=== PATIENT | female | born 1950 | race Caucasian/White ===

== ENCOUNTER 2021-07-31 13:44 | Outpatient (REF) | payer MEDICARE, OTHER, SELFPAY ==
--- NOTE | ~2021-07-31 | MM_ITS ---
EXAMINATION: BONE DENSITOMETRY CLINICAL INDICATION: Screening for osteoporosis. COMPARISON: Baseline BD dated 07/22/2017. TECHNIQUE: Using a Mattersight DXA System (software version: 13.1) manufactured by [employer], dual-energy x-ray absorptiometry was performed of the lumbar spine and left hip. The images are of good technical quality. Summary results are attached. FINDINGS: AP SPINE L1-L4: There is mild lumbar curvature and degenerative changes which may cause overestimation of the lumbar bone mineral density. Current: BMD 1.322 g/cm2, Z-score 2.1, T-score 1.2, normal, 16.3% increase from baseline (<5% change is not significant). Baseline: BMD 1.137 g/cm2. LEFT FEMUR, NECK: Current: BMD 0.821 g/cm2, Z-score -0.4, T-score -1.6, osteopenia. Baseline: BMD 0.747 g/cm2. LEFT FEMUR, TOTAL: Current: BMD 0.891 g/cm2, Z-score 0.0, T-score -0.9, normal, 1.3% increase from baseline (<5% change is not significant). Baseline: BMD 0.880 g/cm2. IDENTIFIED RISK FACTORS: Height loss, family history (parental hip fracture), thiazide, menopause. HISTORY OF FRACTURE: Foot. MEDICATIONS: Calcium supplements or multivitamin, vitamin D. MM/XR DEXA axial skeleton IMPRESSION: 1. DIAGNOSIS: Osteopenia based on the lowest T-score value of -1.6 in the femoral neck applying World Health Organization criteria. 2. 10-YEAR FRACTURE RISK PREDICTION, FRAX: Major osteoporotic fracture (clinical spine, forearm, hip or shoulder) 15.6%. Hip fracture 2.7%. 3. Treatment Recommendations: NOF guidelines recommend consideration for treatment in postmenopausal women and men age 50 and older presenting with the following: -A hip or vertebral (clinical or morphometric) fracture. -T-score less than or equal to -2.5 at the femoral neck or spine after appropriate evaluation to exclude secondary causes. -Low bone mass at the hip or spine and a 10-year fracture probability by FRAX of greater than or equal to 3% for hip fracture or greater than or equal to 20% for major osteoporotic fracture based on the [place] adapted WHO algorithm. 4. Other Recommendations: All treatment decisions require clinical judgment and consideration of individual patient factors, including patient preferences, comorbidities, previous drug use, risk factors not captured in the FRAX model (e.g. frailty, falls, vitamin D deficiency, increased bone turnover, interval significant decline in bone density) and possible under or overestimation of fracture risk by FRAX. Additional medical evaluation for secondary cause of low bone mineral density may be appropriate. FUTURE SCAN RECOMMENDATION: People with diagnosed cases of osteoporosis or at high risk for fracture should have regular bone mineral density tests. For patients eligible for Medicare, routine testing is allowed once every 2 years. The testing frequency can be increased to one year for patients who have rapidly progressing disease, those who are receiving or discontinuing medical therapy to restore bone mass, or have additional risk factors.
== END 2021-07-31 13:45 | disposition home or self-care (01) ==
LOC: HO.MAMMO 13:44
PROVIDERS: PCP Nurse Practitioner Adult Health; Visit Provider Nurse Practitioner Adult Health
DX: Z13.820 Encounter for screening for osteoporosis (principal); M85.80 Other specified disorders of bone density and structure, unspecified site; Z78.0 Asymptomatic menopausal state; Z87.81 Personal history of (healed) traumatic fracture; Z79.899 Other long term (current) drug therapy
CPT/HCPCS: 77080

== ENCOUNTER 2021-08-09 08:16 | Outpatient (REF) | payer MEDICARE, OTHER, SELFPAY ==
--- NOTE | ~2021-08-09 | MM_ITS ---
EXAMINATION: MM SCREENING DIGITAL BREAST TOMOSYNTHESIS, BILATERAL CLINICAL INFORMATION: Screening. Asymptomatic. The lifetime risk of breast cancer based on the Tyrer-Cuzick Model is 4.8%. COMPARISON: Mammography: August 03, 2020 and studies dating back to September 20, 2016 TECHNIQUE: Digital breast tomosynthesis is performed in both the craniocaudal and mediolateral oblique views along with computer-aided detection (CAD). Synthesized 2D images are generated from the tomosynthesis. FINDINGS: The breasts are almost entirely fatty (ACR BI-RADS breast composition Category a). There are no significant masses, abnormal calcifications, or other abnormalities. Cardiac recorder seen about the left chest wall. MM/MM tomosynthesis screening BI IMPRESSION: There are no significant changes from prior study. ASSESSMENT: BI-RADS 1: Negative RECOMMENDATION: Routine annual mammography screening. This patient's information was entered into a reminder system with a target due date for their next mammogram.
== END 2021-08-09 08:17 | disposition home or self-care (01) ==
LOC: HO.MAMMO 08:16
PROVIDERS: PCP Nurse Practitioner Adult Health; Visit Provider Family Medicine
DX: Z12.31 Encounter for screening mammogram for malignant neoplasm of breast (principal)
CPT/HCPCS: 77063; 77067

== ENCOUNTER 2022-08-15 08:03 | Outpatient (REF) | payer MEDICARE, OTHER, SELFPAY ==
--- NOTE | ~2022-08-15 | MM_ITS ---
EXAMINATION: MM SCREENING DIGITAL BREAST TOMOSYNTHESIS, BILATERAL CLINICAL INFORMATION: Screening. Asymptomatic. The lifetime risk of breast cancer based on the Tyrer-Cuzick Model is 4%. COMPARISON: Mammography: 08/09/2021, 08/03/2020, 07/31/2019 TECHNIQUE: Digital breast tomosynthesis is performed in both the craniocaudal and mediolateral oblique views along with computer-aided detection (CAD). Synthesized 2D images are generated from the tomosynthesis. FINDINGS: The breasts are almost entirely fatty (ACR BI-RADS breast composition Category a). Background stromal markings are normal. No developing density, mass, or architectural abnormality. No abnormal calcifications. Cardiac loop recorder again seen overlying posterior upper inner left breast. The axilla are unremarkable. The skin contours are smooth. No significant changes MM/MM tomosynthesis screening BI IMPRESSION: No mammographic evidence of malignancy. ASSESSMENT: BI-RADS 1: Negative RECOMMENDATION: Routine annual mammography screening. This patient's information was entered into a reminder system with a target due date for their next mammogram.
== END 2022-08-15 08:04 | disposition home or self-care (01) ==
LOC: HO.MAMMO 08:03
PROVIDERS: PCP Nurse Practitioner Adult Health; Visit Provider Nurse Practitioner Adult Health
DX: Z12.31 Encounter for screening mammogram for malignant neoplasm of breast (principal)
CPT/HCPCS: 77063; 77067

== ENCOUNTER 2023-08-21 07:55 | Outpatient (REF) | payer MEDICARE, OTHER, SELFPAY ==
--- NOTE | ~2023-08-21 | MM_ITS ---
EXAMINATION: MM SCREENING DIGITAL BREAST TOMOSYNTHESIS, BILATERAL CLINICAL INFORMATION: Screening. Asymptomatic. COMPARISON: Mammography: This study is compared with prior exams dating back to 2019. TECHNIQUE: Digital breast tomosynthesis is performed in both the craniocaudal and mediolateral oblique views along with computer-aided detection (CAD). Synthesized 2D images are generated from the tomosynthesis. FINDINGS: There are scattered areas of fibroglandular density (ACR BI-RADS breast composition Category b). There are no significant masses, abnormal calcifications, or other abnormalities. There is a cardiac loop recorder the medial aspect of the left breast. MM/MM tomosynthesis screening BI IMPRESSION: No mammographic evidence of malignancy. ASSESSMENT: BI-RADS BI-RADS 1 - Negative RECOMMENDATION: Routine annual mammography screening. 1 year F/U This examination should not preclude the clinical evaluation of a suspicious palpable abnormality. This patient's information was entered into a reminder system with a target due date for their next mammogram.
== END 2023-08-21 07:56 | disposition home or self-care (01) ==
LOC: HO.MAMMO 07:55
PROVIDERS: Visit Provider Nurse Practitioner Adult Health
DX: Z12.31 Encounter for screening mammogram for malignant neoplasm of breast (principal)
CPT/HCPCS: 77063; 77067

== ENCOUNTER → 2023-08-21 08:15 | Outpatient (BNV) | payer MEDICARE, OTHER, SELFPAY | PROVIDERS: Visit Provider Radiology Diagnostic Radiology | DX: Z12.31 Encounter for screening mammogram for malignant neoplasm of breast (principal) | CPT/HCPCS: 77063; 77067 ==

== ENCOUNTER 2024-08-26 07:58 | Outpatient (REF) | payer MEDICARE, OTHER, SELFPAY ==
--- NOTE | ~2024-08-26 | MM_ITS ---
EXAMINATION: MM SCREENING DIGITAL BREAST TOMOSYNTHESIS, BILATERAL CLINICAL INFORMATION: Screening. Asymptomatic. COMPARISON: Mammography: Comparison is made with available priors TECHNIQUE: Digital breast mammography with tomosynthesis is performed in both the craniocaudal and mediolateral oblique views along with computer-aided detection (CAD). FINDINGS: There are scattered areas of fibroglandular density (ACR BI-RADS breast composition Category b). Cardiac loop recorder overlies and obscures the superior medial left breast posterior depth. There are no significant masses, abnormal calcifications, or other abnormalities. MM/MM tomosynthesis screening BI IMPRESSION: No mammographic evidence of malignancy. ASSESSMENT: BI-RADS BI-RADS 2 - Benign Findings RECOMMENDATION: Routine annual mammography screening. 1 year F/U This examination should not preclude the clinical evaluation of a suspicious palpable abnormality. This patient's information was entered into a reminder system with a target due date for their next mammogram. Electronically signed by: Sweta Hernandez DO 09/07/2024 12:14 PM EDT
== END 2024-08-26 07:59 | disposition home or self-care (01) ==
LOC: HO.MAMMO 07:58
PROVIDERS: PCP Nurse Practitioner Adult Health; Visit Provider Nurse Practitioner Adult Health
DX: Z12.31 Encounter for screening mammogram for malignant neoplasm of breast (principal)
CPT/HCPCS: 77063; 77067

== ENCOUNTER → 2024-08-26 08:15 | Outpatient (BNV) | payer MEDICARE, OTHER, SELFPAY | PROVIDERS: PCP Nurse Practitioner Adult Health; Visit Provider Internal Medicine | DX: Z12.31 Encounter for screening mammogram for malignant neoplasm of breast (principal) | CPT/HCPCS: 77063; 77067 ==

== ENCOUNTER 2024-09-02 08:10 | Outpatient (REF) | payer MEDICARE, OTHER, SELFPAY ==
--- NOTE | ~2024-09-02 | MM_ITS ---
EXAMINATION: BONE DENSITOMETRY CLINICAL INDICATION: Osteopenia. COMPARISON: Previous BD dated 07/31/2021 and baseline BD dated 07/22/2017. TECHNIQUE: Using a [employer]raSensors DXA System (software version: 13.1) manufactured by [employer], dual-energy x-ray absorptiometry was performed of the lumbar spine and left hip. The images are of good technical quality. Summary results are attached. FINDINGS: AP SPINE L1-L4: Current: BMD 1.258 g/cm2, Z-score 1.7, T-score 0.7, normal, 4.8% decrease from previous, 10.6% increase from baseline (<5% change is not significant). Prior: BMD 1.322 g/cm2. Baseline: BMD 1.137 g/cm2. LEFT FEMUR, NECK: Current: BMD 0.782 g/cm2, Z-score -0.5, T-score -1.8, osteopenia. Prior: BMD 0.821 g/cm2. Baseline: BMD 0.747 g/cm2. LEFT FEMUR, TOTAL: Current: BMD 0.903 g/cm2, Z-score 0.3, T-score -0.8, normal, 1.3% increase from previous, 2.6% increase from baseline (<5% change is not significant). Prior: BMD 0.891 g/cm2. Baseline: BMD 0.880 g/cm2. IDENTIFIED RISK FACTORS: Height loss. Parental hip fracture. Thiazide. Menopause. HISTORY OF FRACTURE: None listed. MEDICATIONS: Calcium supplement and/or multivitamin. Vitamin D. MM/XR DEXA axial skeleton IMPRESSION: 1. DIAGNOSIS: Osteopenia based on the lowest T-score value of -1.8 in the femoral neck applying World Health Organization criteria. 2. 10-YEAR FRACTURE RISK PREDICTION, FRAX: Major osteoporotic fracture (clinical spine, forearm, hip or shoulder) 18.5%. Hip fracture 7.0%. 3. Treatment Recommendations: NOF guidelines recommend consideration for treatment in postmenopausal women and men age 50 and older presenting with the following: -A hip or vertebral (clinical or morphometric) fracture. -T-score less than or equal to -2.5 at the femoral neck or spine after appropriate evaluation to exclude secondary causes. -Low bone mass at the hip or spine and a 10-year fracture probability by FRAX of greater than or equal to 3% for hip fracture or greater than or equal to 20% for major osteoporotic fracture based on the [place] adapted WHO algorithm. 4. Other Recommendations: All treatment decisions require clinical judgment and consideration of individual patient factors, including patient preferences, comorbidities, previous drug use, risk factors not captured in the FRAX model (e.g. frailty, falls, vitamin D deficiency, increased bone turnover, interval significant decline in bone density) and possible under or overestimation of fracture risk by FRAX. Additional medical evaluation for secondary cause of low bone mineral density may be appropriate. FUTURE SCAN RECOMMENDATION: People with diagnosed cases of osteoporosis or at high risk for fracture should have regular bone mineral density tests. For patients eligible for Medicare, routine testing is allowed once every 2 years. The testing frequency can be increased to one year for patients who have rapidly progressing disease, those who are receiving or discontinuing medical therapy to restore bone mass, or have additional risk factors. Electronically signed by: Mike Mehta MD 09/02/2024 02:10 PM EDT
== END 2024-09-02 08:11 | disposition home or self-care (01) ==
LOC: HO.MAMMO 08:10
PROVIDERS: PCP Nurse Practitioner Adult Health; Visit Provider Nurse Practitioner Adult Health
DX: Z13.820 Encounter for screening for osteoporosis (principal); M85.852 Other specified disorders of bone density and structure, left thigh
CPT/HCPCS: 77080

== ENCOUNTER 2025-09-01 09:07 | Outpatient (REF) | payer MEDICARE, OTHER, SELFPAY ==
--- OUTSIDE RECORDS SUMMARY | 2025-09-01 10:16 | XMS_ITS | Encounter Summary ---
Author Organization [facility] Address [address] [facility] [address] [place] [address] Phone Care Team Providers Care Bargain Table Clerk Name Role Phone Selam Knowles CNP Primary Care Provider Jamaal Lamb MD Unavailable Dom Marroquin MD Unavailable Shannon Andrade FIRST ASSIST Unavailable [phone] Breezy Trinh MD Unavailable Khai Hall MD Unavailable Yisel Talbot MD Unavailable [phone] Suraj Solis OT Unavailable Breezy Smith MD Unavailable [phone] Jeanne Beltrán Unavailable Leonard Dumont MD Unavailable Sai Hollins MD Unavailable [phone] Selam Knowles MOTORBIKE COURIER Unavailable Yoly Cline RN Unavailable [email or web address] Encounter Details Date Type Department Care Team (Late st Contact Info) Description 06/01/2020 Procedure Pass [facility] Endoscopy Admitting Dept Virtual Department [address] [place], [place] [id number] Social History Tobacco Use Types Packs/Day Years Used Date Smoking Tobacco: Never Smokeless Tobacco: Never Alcohol Use Standard Drinks/Week Comments Not Currently 0 (1 standard drink = 0.6 oz pur e alcohol) Comments No Sex and Gender Information Value Date Recorded Sex Assigned at Female 05/02/2020 12:58 PM EDT Legal Sex Female 10:00 PM EDT Gender Identity Female 05/02/2020 12:58 PM EDT Sexual Orientation Not on file Occupation Industry Job Start Date Job End Date Retired from [employer] Not on file Not on file Not on file documented as of this encounter Plan of Treatment Upcoming Encounters Date Type Department Care Team (Late st Contact Info) Description 02/13/2026 10:00 AM EDT Office Visit [facility] [address] [place] [address] [place] [address] Selam Knowles CNP [address] [place] [address], [address] [place] [address] 07/03/2026 9:10 AM EDT Office Visit [facility] [address] [place] [address] [place] [address] Dom Benjamin DO [address] [place] [address] documented as of this encounter Visit Diagnoses Not on filedocumented in this encounter Additional Health Concerns Assessment Noted Time PHQ-2 Depression Total Score: 0 04/23/20 20 2:32 PM EDT documented as of this encounter Care Teams Bargain Table Clerk Relationship Specialty Start Date End Date Selam Knowles CNP [address] [place] [address], [address] [place] [address] PCP - General 09/30/17 Jamaal Lamb MD [address] [place] [address], [address] [place] [address] Insurance Assigned Provider 02/21/24 02/20/25 Dom Marroquin MD [address] [place] [address] Ophthalmology 03/30/19 08/05/22 Shannon Andrade NP [address] [place] [address] [email or web address] Obstetrics and Gynecology 03/30/19 4 Breezy Trinh MD [address] [place] [address] [email or web address] Gastroenterology 03/30/19 Khai Hall MD [address] [place] [address] Sleep Medicine 03/30/19 06/11/21 Yisel Talbot MD [address] [place] [address] Dermatology 06/06/20 Suraj Solis OT [address] [place] [address] [email or web address] Transitions Missile InspectorGinner Helper Therapy 01/12/21 01/12/21 Breezy Smith MD [address] [place] [address], [address] [place] [address] [email or web address] Ophthalmology 08/06/22 Jeanne Beltrán PA [address] [place] [address] [email or web address] Physician Heel Emery Buffer 03/04/23 Leonard Dumont MD [address] [place] [address] [email or web address] Gastroenterology 08/09/24 Sai Hollins MD [address] [place] [address] Cardiology 08/09/24 Selam Knowles CNP [address] [place] [address], [address] [place] [address] [email or web address] Insurance Assigned Provider 02/20/25 Yoly Cline RN [address] [place] [address], [address] [place] [address] [email or web address] Missile Inspector 03/15/25 04/05/25 documented as of this encounter Additional Source Comments The information contained in this document represents components of the legal health record. It is not the complete legal health record.[facility]
--- OUTSIDE RECORDS SUMMARY | 2025-09-01 10:16 | XMS_ITS | Encounter Summary ---
Author Organization [facility] Address [address] [facility] [address] [place] [address] Phone Care Team Providers Care Decorator Mannequin Name Role Phone Selam Knowles CNP Primary Care Provider Jamaal Lamb MD Unavailable Dom Marroquin MD Unavailable Shannon Andrade AUTOMOTIVE WHOLESALE PARTS ADVISOR Unavailable [phone] Breezy Trinh MD Unavailable Khai Hall MD Unavailable Yisel Talbot MD Unavailable Breezy Smith MD Unavailable [phone] Jeanne Beltrán Unavailable Leonard Dumont MD Unavailable Sai Hollins MD Unavailable [phone] Selam Knowles BANK CASHIER Unavailable Yoly Cline RN Unavailable [email or web address] Encounter Details Date Type Department Care Team (Late st Contact Info) Description 04/12/2021 Procedure Pass Non-Invasive Cardiology [address] [place] [address] Social History Tobacco Use Types Packs/Day Years [...] Start Date Job End Date Retired from [employer] Not on file Not on file Not on file documented as of this encounter Plan of Treatment Upcoming Encounters Date Type Department Care Team (Late st Contact Info) Description 02/13/2026 10:00 AM EDT Office Visit [facility] [address] [place] [address] [place] [address] Selam Knowles CNP [address] [place] [address] [email or web address] 07/03/2026 9:10 AM EDT Office Visit [facility] [address] [place] [address] Dom Benjamin DO [address] [place] [address] documented as of this encounter Visit Diagnoses Not on filedocumented in this encounter Additional Health Concerns Assessment Noted Time PHQ-2 Depression Total Score: 0 06/09/20 21 11:37 AM EDT documented as of this encounter Care Teams Decorator Mannequin Relationship Specialty Start Date End Date Selam Knowles CNP [address] [place] [address], [address] [address] PCP - General 09/30/17 Jamaal Lamb MD [address] [place] [address] Insurance Assigned Provider 02/21/24 02/20/25 Dom Marroquin MD [address] [place] [address] Ophthalmology 03/30/19 08/05/22 Shannon Andrade NP [address] [place] [address] [email or web address] Obstetrics and Gynecology 03/30/19 Breezy Barry MD [address] [place] [address] [email or web address] Gastroenterology 03/30/19 Khai Hall MD [address] [place] [address] Sleep Medicine 03/30/19 06/11/21 Yisel Talbot MD [address] [place] [address] Dermatology 06/06/20 Breezy Smith MD [address] [place] [address] [email or web address] Ophthalmology 08/06/22 Jeanne Beltrán PA [address] [place] [address] [email or web address] Physician Director Talent Management 03/04/23 Leonard Dumont MD [address] [place] [address] [email or web address] Gastroenterology 08/09/24 Sai Hollins MD [address] [place] [address] Cardiology 08/09/24 Selam Knowles CNP [address] [facility] [place] [address] [email or web address] Insurance Assigned Provider 02/20/25 Yoly Cline RN [address] [facility] [place] [address] [email or web address] Front Maker 03/15/25 04/05/25 documented as of this encounter Additional Source Comments The information contained in this document represents components of the legal health record. It is not the complete legal health record.[facility]
--- OUTSIDE RECORDS SUMMARY | 2025-09-01 10:16 | XMS_ITS | Encounter Summary ---
Author Organization [facility] Address [address] [facility] [address] [place] [address] Phone Care Team Providers Care Operations Advisor Name Role Phone Selam Knowles CNP Primary Care Provider Jamaal Lamb MD Unavailable Dom Marroquin MD Unavailable Shannon Andrade PROGRESS MAN Unavailable [phone] Breezy Trinh MD Unavailable Khai Hall MD Unavailable Yisel Talbot MD Unavailable [phone] Suraj Solis OT Unavailable Breezy Smith MD Unavailable [phone] Jeanne Beltrán Unavailable Leonard Dumont MD Unavailable Sai Hollins MD Unavailable [phone] Selam Knowles PARTS FINISHER Unavailable Yoly Cline RN Unavailable [email or web address] Encounter Details Date Type Department Care Team (Late st Contact Info) Description 11/22/2020 Procedure Pass Non-Invasive Cardiology [address] [place] [address] Social History Tobacco Use Types Packs/Day Years [...] Start Date Job End Date Retired from [employer] Not on file Not on file Not on file documented as of this encounter Plan of Treatment Upcoming Encounters Date Type Department Care Team (Late st Contact Info) Description 02/13/2026 10:00 AM EDT Office Visit [facility] [address] [place] [address] [place] [address] Selam Knowles CNP [address] [place] [address], [address] [place] [address] 07/03/2026 9:10 AM EDT Office Visit [facility] [address] [place] [address] [place] [address] Dom Benjamin DO [address] [place] [address] documented as of this encounter Visit Diagnoses Not on filedocumented in this encounter Additional Health Concerns Assessment Noted Time PHQ-2 Depression Total Score: 0 06/03/20 20 8:10 PM EDT documented as of this encounter Care Teams Operations Advisor Relationship Specialty Start Date End Date Selam Knowles CNP [address] [place] [address], [address] [place] [address] PCP - General 09/30/17 Jamaal Lamb MD [address] [place] [address], [address] [place] [address] Insurance Assigned Provider 02/21/24 02/20/25 Dom Marroquin MD [address] [place] [address] Ophthalmology 03/30/19 08/05/22 Shannon Andrade NP [address] [place] [address] [email or web address] Obstetrics and Gynecology 03/30/19 4 Breezy Trinh MD [address] [place] [address] [email or web address] Gastroenterology 03/30/19 Khai Hall MD [address] [place] [address] Sleep Medicine 03/30/19 06/11/21 Yisel Talbot MD [address] [place] [address] Dermatology 06/06/20 Suraj Solis, OT [address] [place] [address] [email or web address] Transitions Store PlannerInvestigation Division Sergeant Therapy 01/12/21 01/12/21 Breezy Smith MD [address] [place], [place] [address] [place] [address] [email or web address] Ophthalmology 08/06/22 Jeanne Beltrán PA [address] [place] [address] [email or web address] Physician Fish Machine Feeder 03/04/23 Leonard Dumont MD [address] [place] [address] [email or web address] Gastroenterology 08/09/24 Sai Hollins MD [address] [place] [address] Cardiology 08/09/24 Selam Knowles CNP [address] [place] [address], [address] [place] [address] [email or web address] Insurance Assigned Provider 02/20/25 Yoly Cline RN [address] [place] [address], [address] [place] [address] [email or web address] 03/15/25 04/05/25 documented as of this encounter Additional Source Comments The information contained in this document represents components of the legal health record. It is not the complete legal health record.[facility]
--- OUTSIDE RECORDS SUMMARY | 2025-09-01 10:16 | XMS_ITS | Encounter Summary ---
Author Organization [facility] Address [address] [facility] [address] [place] [address] Phone Care Team Providers Care Supervisor Assembly Name Role Phone Selam Knowles CNP Primary Care Provider Jamaal Lamb MD Unavailable Dom Marroquin MD Unavailable Shannon Andrade PAPER HANDLER Unavailable [phone] Breezy Trinh MD Unavailable Khai Hall MD Unavailable Yisel Talbot MD Unavailable Suraj Solis OT Unavailable Breezy Smith MD Unavailable [phone] Jeanne Beltrán Unavailable Leonard Dumont MD Unavailable Sai Hollins MD Unavailable [phone] Selam Knowles GOLF CLUB MANAGER Unavailable Yoly Cline RN Unavailable [email or web address] Encounter Details Date Type Department Care Team (Late st Contact Info) Description 01/11/[address] [facility] Cardiovascular And Interventional Radiology [address] [place] [address] Social History Tobacco Use Types Packs/Day Years [...] Start Date Job End Date Retired from [employer] Not on file Not on file Not on file documented as of this encounter Plan of Treatment Upcoming Encounters Date Type Department Care Team (Late st Contact Info) Description 02/13/2026 10:00 AM EDT Office Visit [facility] [address] [place] [address] [place] [address] Selam Knowles CNP [address] [place] [address], [address] [place] [address] [email or web address] 07/03/2026 9:10 AM EDT Office Visit [facility] [address] [place] [address] [place] [address] Dom Benjamin DO 22 [place] [address] documented as of this encounter Visit Diagnoses Not on filedocumented in this encounter Additional Health Concerns Assessment Noted Time PHQ-2 Depression Total Score: 0 06/03/20 20 8:10 PM EDT documented as of this encounter Care Teams Supervisor Assembly Relationship Specialty Start Date End Date Selam Knowles CNP [address] [place] [address], [address] [place] [address] PCP - General 09/30/17 Jamaal Lamb MD [address] [place] [address], [address] [place] [address] Insurance Assigned Provider 02/21/24 02/20/25 Dom Marroquin MD [address] [place] [address] Ophthalmology 03/30/19 08/05/22 Shannon Andrade NP [address] [place] [address] [email or web address] Obstetrics and Gynecology 03/30/19 4 Breezy Trinh MD [address] [place] [address] [email or web address] Gastroenterology 03/30/19 Khai Hall MD [address] [place] [address] Sleep Medicine 03/30/19 06/11/21 Yisel Talbot MD [address] [place] [address] Dermatology 06/06/20 Suraj Solis OT [address] [place] [address] [email or web address] Transitions Wealth Management ConsultantTimber Cutter Therapy 01/12/21 01/12/21 Breezy Smith MD [address] [place] [address], [address] [place] [address] [email or web address] Ophthalmology 08/06/22 Jeanne Beltrán PA [address] [place] [address] [email or web address] Physician Production Cloth Cutter 03/04/23 Leonard Dumont MD [address] [place] [address] [email or web address] Gastroenterology 08/09/24 Sai Hollins MD [address] [place] [address] Cardiology 08/09/24 Selam Knowles CNP [address] [place] [address], [address] [place] [address] [email or web address] Insurance Assigned Provider 02/20/25 Yoly Cline RN [address] [place] [address], [address] [place] [address] [email or web address] Wealth Management Consultant 03/15/25 04/05/25 documented as of this encounter Additional Source Comments The information contained in this document represents components of the legal health record. It is not the complete legal health record.[facility]
--- OUTSIDE RECORDS SUMMARY | 2025-09-01 10:16 | XMS_ITS | Encounter Summary ---
Author Organization [facility] Address [address] [facility] [address] [place] [address] Phone Care Team Providers Care Wire Rope Fabrication Supervisor Name Role Phone Selam Knowles CNP Primary Care Provider Jamaal Lamb MD Unavailable Dom Marroquin MD Unavailable Shannon Andrade CONCRETE PLANT LABORER Unavailable [phone] Breezy Trinh MD Unavailable Khai Hall MD Unavailable Yisel Talbot MD Unavailable Breezy Smith MD Unavailable [phone] Jeanne Beltrán Unavailable Leonard Dumont MD Unavailable Sai Hollins MD Unavailable [phone] Selam Knowles PHARMACY TECHNICIAN TRAINEE Unavailable [phone] Yoly Cline RN Unavailable [email or web address] Encounter Details Date Type Department Care Team (Late st Contact Info) Description 04/12/2021 Procedure Pass Non-Invasive Cardiology [address] [place] [address] Social History Tobacco Use Types Packs/Day Years [...] Start Date Job End Date Retired from [employer] Not on file Not on file Not on file documented as of this encounter Plan of Treatment Upcoming Encounters Date Type Department Care Team (Late st Contact Info) Description 02/13/2026 10:00 AM EDT Office Visit [facility] [address] [place] [address] [place] [address] Selam Knowles CNP [address] [place] [address] 07/03/2026 9:10 AM EDT Office Visit [facility] [address] [place] [address] [place] [address] Dom Benjamin DO [address] [place] [address] documented as of this encounter Visit Diagnoses Not on filedocumented in this encounter Additional Health Concerns Assessment Noted Time PHQ-2 Depression Total Score: 0 06/03/20 20 8:10 PM EDT documented as of this encounter Care Teams Wire Rope Fabrication Supervisor Relationship Specialty Start Date End Date Selam Knowles CNP [address] [place] [address] PCP - General 09/30/17 Jamaal Lamb MD [address] [place] [address] Insurance Assigned Provider 02/21/24 02/20/25 Dom Marroquin MD [address] [place] [address] Ophthalmology 03/30/19 08/05/22 Shannon Andrade NP [address] [place] [address] [email or web address] Obstetrics and Gynecology 03/30/19 Breezy Barry MD [address] [place] [address] [email or web address] Gastroenterology 03/30/19 Khai Hall MD [address] [place] [address] Sleep Medicine 03/30/19 06/11/21 Yisel Talbot MD [address] [place] [address] Dermatology 06/06/20 Breezy Smith MD [address] [place] [address] [email or web address] Ophthalmology 08/06/22 Jeanne Beltrán PA [address] [place] [address] [email or web address] Physician Coater Associate 03/04/23 Leonard Dumont MD [address] [place] [address] [email or web address] Gastroenterology 08/09/24 Sai Hollins MD [address] [place] [address] Cardiology 08/09/24 Selam Knowles CNP [address] [facility] [place] [address] [email or web address] Insurance Assigned Provider 02/20/25 Yoly Cline RN [address] [facility] [place] [address] [email or web address] Stra[facility] Registered Nurse 03/15/25 04/05/25 documented as of this encounter Additional Source Comments The information contained in this document represents components of the legal health record. It is not the complete legal health record.[facility]
--- OUTSIDE RECORDS SUMMARY | 2025-09-01 10:16 | XMS_ITS | Encounter Summary ---
Author Organization [facility] Address [address] [facility] [address] [place] [address] Phone Care Team Providers Care Gold Letterer Name Role Phone Selam Knowles CNP Primary Care Provider [phone] Jamaal Lamb MD Unavailable [phone] Dom Marroquin MD Unavailable Shannon Andrade ASSOCIATE FINANCIAL ADVISOR Unavailable [phone] Breezy Trinh MD Unavailable Khai Hall MD Unavailable Yisel Talbot MD Unavailable Suraj Solis OT Unavailable Breezy Smith MD Unavailable [phone] Jeanne Beltrán Unavailable [place] Dumont MD Unavailable Sai Hollins MD Unavailable [phone] Selam Knowles EDITORIAL ASSISTANT Unavailable [phone] Yoly Cline RN Unavailable [email or web address] Reason for Referral * Outpatient Procedure - Closed Specialty Diagnoses / Procedures Referred By Contac t Referred To Contact Diagnoses LBBB (left bundle branch block) Procedures Adult Echo TTE Leobardo Larios MD Phone: tel: fax: mailto:[email or web address] Referral ID Status Reason Start Date Expiration Date Visits Re quested Visits Authorized [id number] Closed 09/09/2018 09/09/2019 1 1 Encounter Details Date Type Department Care Team (Latest Contact Info) Description 09/09/2018 Ancillary [facility] [address] Floor, [address] [place] [address] Leobardo Larios MD [address] [place] [address] LBBB (left bundle branch block) Social History Tobacco Use Types Packs/Day Years Used Date Smoking Tobacco: Never Smokeless Tobacco: Never Alcohol Use Standard Drinks/Week Comments No 0 (1 standard drink = 0.6 oz pur e alcohol) Comments Unknown Sex and Gender Information Value Date Recorded Sex Assigned at Female 05/02/2020 12:58 PM EDT Legal Sex Female 10:00 PM EDT Gender Identity Female 05/02/2020 12:58 PM EDT Sexual Orientation Not on file documented as of this encounter Plan of Treatment Upcoming Encounters Date Type Department Care Team (Late st Contact Info) Description 02/13/2026 10:00 AM EDT Office Visit [facility] [place] [facility] [address] [place] [address] Selam Knowles, FELIX [address] [facility] [place] [address] 07/03/2026 9:10 AM EDT Office Visit [facility] [address] [place] [address] Dom Benjamin DO 22 [place] [address] documented as of this encounter Results * TTE COMPREHENSIVE (09/10/2018 1:40 PM EDT) Anatomical Region Laterality Modality Heart Ultrasound Narrative 09/14/2018 10:49 AM EDT See scanned report Procedure Note Manoj Sarkar, DO - 09/14/2018 See scanned report us Leobardo Larios MD CV ECHO ORDERABLES Final Result documented in this encounter Visit Diagnoses Diagnosis LBBB (left bundle branch block) Other left bundle branch block LBBB (left bundle branch block) Other left bundle branch block documented in this encounter Care Teams Gold Letterer Relationship Specialty Start Date End Date Selam Knowles CNP [address] [place] [address] [email or web address] PCP - General 09/30/17 Jamaal Lamb MD [address] [place] [address] Insurance Assigned Provider 02/21/24 02/20/25 Dom Marroquin MD [address] [place] [address] Ophthalmology 03/30/19 08/05/22 Shannon Andrade NP [address] [place] [address] Obstetrics and Gynecology 03/30/19 4 Breezy Trinh MD [address] [address] Gastroenterology 03/30/19 Khai Hall MD [address] [place] [address] [place] [address] Sleep Medicine 03/30/19 06/11/21 Yisel Talbot MD [address], [place] [address] Dermatology 06/06/20 Suraj Solis OT 10 [place] [address] [email or web address] Transitions Tobacco Stemmer MachinePmo Lead Therapy 01/12/21 01/12/21 Breezy Smith MD [address] [place] [address], [address] [place] [address] [email or web address] Ophthalmology 08/06/22 Jeanne Beltrán PA [facility] [address] [address] [email or web address] Physician Trim And Burr Operator 03/04/23 Leonard Dumont MD [address] [place] [address] [email or web address] Gastroenterology 08/09/24 Sai Hollins MD [address] [place] [address] Cardiology 08/09/24 Selam Knowles, FELIX [address] [facility] [place], [place] [address] [email or web address] Insurance Assigned Provider 02/20/25 Yoly Cline, VICKY [address] [facility] [place] [address] .org PHCM Tobacco Stemmer Machine 03/15/25 04/05/25 documented as of this encounter Additional Source Comments The information contained in this document represents components of the legal health record. It is not the complete legal health record.[facility]
--- OUTSIDE RECORDS SUMMARY | 2025-09-01 10:16 | XMS_ITS | Encounter Summary ---
Author Organization [facility] Address [address] [facility] [address] [place] [address] Phone Care Team Providers Care Drum Barker Operator Name Role Phone Selam Knowles CNP Primary Care Provider Jamaal Lamb MD Unavailable Dom Marroquin MD Unavailable Shannon Andrade COMPUTER HARDWARE ENGINEER Unavailable [phone] Breezy Trinh MD Unavailable Khai Hall MD Unavailable Yisel Talbot MD Unavailable Suraj Solis OT Unavailable Breezy Smith MD Unavailable [phone] Jeanne Beltrán Unavailable [place] Dumont MD Unavailable Sai Hollins MD Unavailable [phone] Selam Knowles COMBINER OPERATOR Unavailable Yoly Cline RN Unavailable [email or web address] Encounter Details Date Type Department Care Team (Late st Contact Info) Description 01/12/2021 Procedure Pass [facility] Cardiovascular And Interventional Radiology [address] [place] [address] Social History Tobacco Use Types Packs/Day Years [...] Date Job End Date Retired from [employer] Not on file Not on file Not on file documented as of this encounter Plan of Treatment Upcoming Encounters Date Type Department Care Team (Late st Contact Info) Description 02/13/2026 10:00 AM EDT Office Visit [facility] [place] [facility] [address] [place] [address] [place] [address] Selam Knowles CNP [address] [place] [address], [address] [place] [address] 07/03/2026 9:10 AM EDT Office Visit [facility] [address] [place] [address] [place] [address] Dom Benjamin DO 22 [place] [address] documented as of this encounter Visit Diagnoses Not on filedocumented in this encounter Additional Health Concerns Assessment Noted Time PHQ-2 Depression Total Score: 0 06/03/20 20 8:10 PM EDT documented as of this encounter Care Teams Drum Barker Operator Relationship Specialty Start Date End Date Selam Knowles CNP [address] [place] [address], [address] [place] [address] PCP - General 09/30/17 Jamaal Lamb MD [address] [place] [address], [address] [place] [address] Insurance Assigned Provider 02/21/24 02/20/25 Dom Marroquin MD [address] [place] [address] Ophthalmology 03/30/19 08/05/22 Shannon Andrade NP [address] [place] [address] [email or web address] Obstetrics and Gynecology 03/30/19 4 Breezy Trinh MD [address] [place] [address] [email or web address] Gastroenterology 03/30/19 Khai Hall MD [address] [place] [address] Sleep Medicine 03/30/19 06/11/21 Yisel Talbot MD [address] [place] [address] Dermatology 06/06/20 Suraj Solis OT [address] [place] [address] [email or web address] Transitions Airplane Patrol PilotBudget Engineer Therapy 01/12/21 01/12/21 Breezy Smith MD [address] [place] [address], [address] [place] [address] [email or web address] Ophthalmology 08/06/22 Jeanne Beltrán PA [address] [place] [address] [email or web address] Physician Customer Success Representative 03/04/23 Leonard Dumont MD [address] [place] [address] [email or web address] Gastroenterology 08/09/24 Sai Hollins MD [address] [place] [address] Cardiology 08/09/24 Selam Knowles CNP [address] [place] [address], [address] [place] [address] [email or web address] Insurance Assigned Provider 02/20/25 oYly Cline RN [address] [place] [address], [address] [place] [address] [email or web address] CenterM Airplane Patrol Pilot 03/15/25 04/05/25 documented as of this encounter Additional Source Comments The information contained in this document represents components of the legal health record. It is not the complete legal health record.[facility]
--- OUTSIDE RECORDS SUMMARY | 2025-09-01 10:16 | XMS_ITS | Encounter Summary ---
Author Organization [facility] Address [address] [facility] [address] [place] [address] Phone Care Team Providers Care Customs Compliance Analyst Name Role Phone Selam Knowles CNP Primary Care Provider Jamaal Lamb MD Unavailable Dom Marroqiun MD Unavailable Shannon Andrade POSTAL SORTING OFFICER Unavailable Breezy Trihn MD Unavailable Khai Hall MD Unavailable Yisel Talbot MD Unavailable Breezy Smith MD Unavailable [phone] Jeanne Beltrán Unavailable [place] Dumont MD Unavailable Sai Hollins MD Unavailable [phone] Selam Knowles KINDERGARTEN TEACHER ASSISTANT Unavailable Yoly Cline RN Unavailable [email or web address] Encounter Details Date Type Department Care Team (Late st Contact Info) Description 03/13/2021 Procedure Pass Non-Invasive Cardiology [address] [place] [id number] Social History Tobacco Use Types Packs/Day Years [...] Start Date Job End Date Retired from [employer] Not on file Not on file Not on file documented as of this encounter Plan of Treatment Upcoming Encounters Date Type Department Care Team (Late st Contact Info) Description 02/13/2026 10:00 AM EDT Office Visit [facility] [place] [facility] [address] [place] [address] [place] [address] Selam Knowles CNP [address] [place] [address] [email or web address] 07/03/2026 9:10 AM EDT Office Visit [facility] [address] [place] [address] [place] [address] Dom Benjamin DO [address] [place] [address] documented as of this encounter Visit Diagnoses Not on filedocumented in this encounter Additional Health Concerns Assessment Noted Time PHQ-2 Depression Total Score: 0 06/03/20 20 8:10 PM EDT documented as of this encounter Care Teams Customs Compliance Analyst Relationship Specialty Start Date End Date Selam Knowles CNP [address] [place] [address] PCP - General 09/30/17 Jamaal Lamb MD [address] [place] [address] Insurance Assigned Provider 02/21/24 02/20/25 Dom Marroquin MD [address] [place] [address] Ophthalmology 03/30/19 08/05/22 Sahnnon Andrade NP [address] [place] [address] [email or web address] Obstetrics and Gynecology 03/30/19 Breezy Baryr MD [address] [place] [address] [email or web address] Gastroenterology 03/30/19 Khai Hall MD [address] [place] [address] Sleep Medicine 03/30/19 06/11/21 Yisel Talbot MD [address] [place] [address] Dermatology 06/06/20 Breezy Smith MD [address] [place] [address] [email or web address] Ophthalmology 08/06/22 Jeanne Beltrán PA [address] [place] [address] [email or web address] Physician Aerospace Products Sales Engineer 03/04/23 Leonard Dumont MD [address] [place] [address] [email or web address] Gastroenterology 08/09/24 Sai Hollins MD [address] [place] [address] Cardiology 08/09/24 Selam Knowles CNP [address] [facility] [place] [address] [email or web address] Insurance Assigned Provider 02/20/25 Yoly Cline RN [address] [facility] [place] [address] [email or web address] Medical Center Marketing Research Coordinator 03/15/25 04/05/25 documented as of this encounter Additional Source Comments The information contained in this document represents components of the legal health record. It is not the complete legal health record.[facility]
--- OUTSIDE RECORDS SUMMARY | 2025-09-01 10:16 | XMS_ITS | Encounter Summary ---
Author Organization [facility] Address [address] [facility] [address] [place] [address] Phone Care Team Providers Care Fruit Inspector Name Role Phone Selam Knowles CNP Primary Care Provider Jamaal Lamb MD Unavailable [phone] Shannon Andrade NP Unavailable [phone] Breezy Trinh MD Unavailable Yisel Talbot MD Unavailable [phone] Breezy Smith MD Unavailable [phone] Jeanne Beltrán Unavailable Leonard Dumont MD Unavailable Sai Hollins MD Unavailable [phone] Selam Knowles CNP Unavailable [phone] Yoly Cline RN Unavailable [email or web address] Encounter Details Date Type Department Care Team (Late st Contact Info) Description 08/27/2022 Procedure Pass [facility], [address] [facility], 2nd Floor, [address] [place] [address] Social History Tobacco Use Types Packs/Day Years Used Date Smoking Tobacco: Never Smokeless Tobacco: Never Alcohol Use Standard Drinks/Week Comments Not Currently 0 (1 standard drink = 0.6 oz pur e alcohol) (2021) Comments No Sex and Gender Information Value Date Recorded Sex Assigned at Female 05/02/2020 12:58 PM EDT Legal Sex Female 10:00 PM EDT Gender Identity Female 05/02/2020 12:58 PM EDT Sexual Orientation Not on file Occupation Industry Job Start Date Job End Date Retired from [employer] Not on file Not on file Not on file documented as of this encounter Plan of Treatment Upcoming Encounters Date Type Department Care Team (Late st Contact Info) Description 02/13/2026 10:00 AM EDT Office Visit [facility] [address] [place] [address] Selam Knowles CNP [address] [place] [address], [address] [place] [address] 07/03/2026 9:10 AM EDT Office Visit [facility] [address] [place] [address] Dom Benjamin DO [address] [place] [address] documented as of this encounter Visit Diagnoses Not on filedocumented in this encounter Additional Health Concerns Assessment Noted Time PHQ-2 Depression Total Score: 0 08/03/20 22 9:47 AM EDT documented as of this encounter Care Teams Fruit Inspector Relationship Specialty Start Date End Date Selam Knowles CNP [address] [place] [address], [address] [place] [address] PCP - General 09/30/17 Jamaal Lamb MD [address] [place] [address], [address] [place] [address] Insurance Assigned Provider 02/21/24 02/20/25 Shannon Andrade NP [address] [place] [address] [email or web address] Obstetrics and Gynecology 03/30/19 4 Breezy Trinh MD 10 [facility] 2 [place] [address] [email or web address] Gastroenterology 03/30/19 Yisel Talbot MD [address], [place] [address] Dermatology 06/06/20 Breezy Smith MD 40 [facility], [address] [place] [address] [email or web address] Ophthalmology 08/06/22 Jeanne [place]án [place] [address] [place] [address] [email or web address] Payment Networkcox south.[facility] Physician Chicken Catcher 03/04/23 Leonard Dumont MD [address] [address] [email or web address] Gastroenterology 08/09/24 Sai Hollins MD [address] [place] [address] Cardiology 08/09/24 Selam Knowles, FELIX 22 [facility], [address] [place] [address] [email or web address] Insurance Assigned Provider 02/20/25 Yoly Cline, VICKY 22 [facility], [address] [place] [address] [email or web address] Executive Business Coach 03/15/25 04/05/25 documented as of this encounter Additional Source Comments The information contained in this document represents components of the legal health record. It is not the complete legal health record.[facility]
--- OUTSIDE RECORDS SUMMARY | 2025-09-01 10:16 | XMS_ITS | Encounter Summary ---
Author Organization [facility] Address [address] [facility] [address] [place] [address] Phone Care Team Providers Care Real Time Analyst Name Role Phone Selam Knowles CNP Primary Care Provider Jamaal Lamb MD Unavailable Dom Marroquin MD Unavailable Shannon Andrade NP Unavailable [phone] Breezy Trinh MD Unavailable Yisel Talbot MD Unavailable [phone] Breezy Smith MD Unavailable [phone] Jeanne Beltrán Unavailable Leonard Dumont MD Unavailable Sai Hollins MD Unavailable [phone] Selam Knowles ASSEMBLER [employer]ES Unavailable Yoly Cline RN Unavailable [email or web address] Encounter Details Date Type Department Care Team (Late st Contact Info) Description 07/02/2022 Procedure Pass [facility] [place] [place] Cardiology Referral Images [address] [place] [address] Social History Tobacco Use Types Packs/Day Years [...] 02/13/2026 10:00 AM EDT Office Visit [facility] [address] [place] [address] Selam Knowles CNP [address] [place] [address], [address] [place] [address] [email or web address] 07/03/2026 9:10 AM EDT Office Visit [facility] [address] [place] [address] Dom Benjamin DO 22 [place] [address] documented as of this encounter Visit Diagnoses Not on filedocumented in this encounter Additional Health Concerns Assessment Noted Time PHQ-2 Depression Total Score: 0 06/09/20 21 11:37 AM EDT documented as of this encounter Care Teams Real Time Analyst Relationship Specialty Start Date End Date Selam Knowles CNP [address] [place] [address], [address] [address] PCP - General 09/30/17 Jamaal Lamb MD [address] [place] [address], [address] [address] Insurance Assigned Provider 02/21/24 02/20/25 Dom Marroquin MD [address] [place] [address] Ophthalmology 03/30/19 08/05/22 Shannon Andrade NP [address] [place] [address] [email or web address] Obstetrics and Gynecology 03/30/19 4 Breezy Trinh MD [address] [place] [address] [email or web address] Gastroenterology 03/30/19 Yisel Talbot MD [address] [place] [address] Dermatology 06/06/20 Breezy Smith MD [address] [place] [address], [address] [place] [address] [email or web address] Ophthalmology 08/06/22 Jeanne Beltrán PA [address] [place] [address] [email or web address] Physician Respiratory Therapy Director 03/04/23 Leonard Dumont MD [address] [place] [address] [email or web address] Gastroenterology 08/09/24 Sai Hollins MD [address] [place] [address] Cardiology 08/09/24 Selam Knowles CNP 22 [facility], [address] [place] [address] Insurance Assigned Provider 02/20/25 Yoly Cline, RN 22 [facility], [address] [place] [address] [email or web address] Ionia Hospital Green Energy Marketing Analyst 03/15/25 04/05/25 documented as of this encounter Additional Source Comments The information contained in this document represents components of the legal health record. It is not the complete legal health record.[facility]
--- OUTSIDE RECORDS SUMMARY | 2025-09-01 10:16 | XMS_ITS | Encounter Summary ---
Author Organization [facility] Address [address] [facility] [address] [place] [address] Phone Care Team Providers Care Electrical Hardware Engineer Name Role Phone Selam Knowles CNP Primary Care Provider [phone] Jamaal Lamb MD Unavailable Dom Marroquin MD Unavailable Shannon Andrade LUMBER SCALER Unavailable [phone] Breezy Trinh MD Unavailable Khai Hall MD Unavailable Yisel Talbot MD Unavailable Breezy Smith MD Unavailable [phone] Jeanne Beltrán Unavailable Leonard Dumont MD Unavailable Sai Hollins MD Unavailable [phone] Selam Knowles SEED PACKER Unavailable Yoly Cline RN Unavailable [email or web address] Encounter Details Date Type Department Care Team (Late st Contact Info) Description 04/12/2021 Ancillary Orders Non-Invasive Cardiology [address] [place] [address] Zach Bradley MD 30 [place] [address] [email or web address] Syncope, unspecified syncope type Social History Tobacco Use Types Packs/Day Years [...] End Date Retired from [employer] Not on file Not on file Not on file documented as of this encounter Plan of Treatment Upcoming Encounters Date Type Department Care Team (Late st Contact Info) Description 02/13/2026 10:00 AM EDT Office Visit [address] [place] [address] Selam Knowles CNP [address] [place] [address], [address] [address] 07/03/2026 9:10 AM EDT Office Visit [facility] [address] [place] [address] [place] [address] Dom Benjamin DO [address] [place] [address] documented as of this encounter Visit Diagnoses Diagnosis Syncope, unspecified syncope type documented in this encounter Additional Health Concerns Assessment Noted Time PHQ-2 Depression Total Score: 0 06/03/20 20 8:10 PM EDT documented as of this encounter Care Teams Electrical Hardware Engineer Relationship Specialty Start Date End Date Selam Knowles CNP [address] [place] [address] [email or web address] PCP - General 09/30/17 Jamaal Lamb MD [address] [place] [address] [email or web address] Insurance Assigned Provider 02/21/24 02/20/25 Dom Marroquin MD [address] [place] [address] Ophthalmology 03/30/19 08/05/22 Shannon Andrade NP [address] [place] [address] [email or web address] Obstetrics and Gynecology 03/30/19 4 Breezy Trinh MD [address] [place] [address] [email or web address] Gastroenterology 03/30/19 Khai Hall MD [address] [place] [address] Sleep Medicine 03/30/19 06/11/21 Yisel Talbot MD [address] [place] [address] Dermatology 06/06/20 Breezy Smith MD [address] [place], [place] [address] [place] [address] [email or web address] Ophthalmology 08/06/22 Jeanne Beltrán PA [address] [place] [address] [email or web address] Physician Side Framer 03/04/23 Leonard Dumont MD [address] [place] [address] [email or web address] Gastroenterology 08/09/24 Sai Hollins MD [address] [place] [address] Cardiology 08/09/24 Selam Knowles CNP [address] [place] [address], [address] [place] [address] [email or web address] Insurance Assigned Provider 02/20/25 Yoly Cline RN [address] [place] [address], [address] [place] [address] [email or web address] [facility] Seal Mixing Operator 03/15/25 04/05/25 documented as of this encounter Additional Source Comments The information contained in this document represents components of the legal health record. It is not the complete legal health record.[facility]
--- OUTSIDE RECORDS SUMMARY | 2025-09-01 10:16 | XMS_ITS | Encounter Summary ---
Author Organization [facility] Address [address] [facility] [address] [place] [address] Phone Care Team Providers Care Stamp Mounter Name Role Phone Selam Knowles CNP Primary Care Provider Jamaal Lamb MD Unavailable Dom Marroquin MD Unavailable Shannon Andrade DIE SINKER APPRENTICE Unavailable [phone] Breezy Trinh MD Unavailable Khai Hall MD Unavailable Yisel Talbot MD Unavailable Breezy Smith MD Unavailable [phone] Jeanne Beltrán Unavailable Leonard Dumont MD Unavailable Sai Hollins MD Unavailable [phone] Selam Knowles CNP Unavailable [phone] Yoly Cline RN Unavailable [email or web address] Encounter Details Date Type Department Care Team (Late st Contact Info) Description 04/11/2021 Procedure Pass [facility] [place] [id number] Social History Tobacco Use Types Packs/Day Years [...] Description 02/13/2026 10:00 AM EDT Office Visit [facility] [address] [place] [address] [place] [address] Selam Knowles CNP [address] [place] [address] [email or web address] 07/03/2026 9:10 AM EDT Office Visit [facility] [address] [place] [address] Dom Benjamin DO [address] [place] [address] documented as of this encounter Visit Diagnoses Not on filedocumented in this encounter Additional Health Concerns Assessment Noted Time PHQ-2 Depression Total Score: 0 06/09/20 21 11:37 AM EDT documented as of this encounter Care Teams Stamp Mounter Relationship Specialty Start Date End Date Selam Knowles CNP [address] [place] [address], [address] [address] PCP - General 09/30/17 Jamaal Lamb MD [address] [place] [address] Insurance Assigned Provider 02/21/24 02/20/25 Dom Marroquin MD [address] [place] [address] Ophthalmology 03/30/19 08/05/22 Shannon Andrade NP [address] [place] [address] [email or web address] Obstetrics and Gynecology 03/30/19 Breezy Barry MD [address] [place] [address] [email or web address] Gastroenterology 03/30/19 Khai Hall MD [address] [place] [address] Sleep Medicine 03/30/19 06/11/21 Yisel Talbot MD [address] [place] [address] Dermatology 06/06/20 Breezy Smith MD [address] [place] [address] [email or web address] Ophthalmology 08/06/22 Jeanne Beltrán PA [address] [place] [address] [email or web address] Physician Fiberglass Model Maker 03/04/23 Leonard Dumont MD [address] [place] [address] [email or web address] Gastroenterology 08/09/24 Sai Hollins MD [address] [place] [address] Cardiology 08/09/24 Selam Knowles CNP [address] [facility], [address] [place] [address] [email or web address] Insurance Assigned Provider 02/20/25 Yoly Cline RN [address] [facility], [address] [place] [address] [email or web address] Standish Hospital Financial Coach 03/15/25 04/05/25 documented as of this encounter Additional Source Comments The information contained in this document represents components of the legal health record. It is not the complete legal health record.[facility]
--- OUTSIDE RECORDS SUMMARY | 2025-09-01 10:16 | XMS_ITS | Encounter Summary ---
Author Organization [facility] Address [address] [place] [address] Phone Care Team Providers Care Fabric Worker Foreman Name Role Phone Selam Knowles CNP Primary Care Provider [phone] Jamaal Lamb MD Unavailable Dom Marroquin MD Unavailable Shannon Andrade PROFESSOR OF POLITICAL SCIENCE Unavailable [phone] Breezy Trinh MD Unavailable Khai Hall MD Unavailable Yisel Talbot MD Unavailable Breezy Smith MD Unavailable [phone] Jeanne Beltrán Unavailable Leonard Dumont MD Unavailable Sai Hollins MD Unavailable [phone] Selam Knowles PL[employer] FACTORY WORKER Unavailable Yoly Cline RN Unavailable [email or web address] Encounter Details Date Type Department Care Team (Late st Contact Info) Description 04/12/2021 Ancillary [facility] [address] Floor, [address] [place], [place] [id number] Zach Bradley MD [address] [place] [address] [email or web address] Social History Tobacco Use Types Packs/Day Years [...] Start Date Job End Date Retired from [employer] Not on file Not on file Not on file documented as of this encounter Plan of Treatment Upcoming Encounters Date Type Department Care Team (Late st Contact Info) Description 02/13/2026 10:00 AM EDT Office Visit [facility] [address] [place] [address] [place] [address] Selam Knowles CNP [address] [place] [address], [address] [address] 07/03/2026 9:10 AM EDT Office Visit [facility] [address] [place] [address] [place] [address] Dom Benjamin DO [address] [place] [address] documented as of this encounter Visit Diagnoses Not on filedocumented in this encounter Additional Health Concerns Assessment Noted Time PHQ-2 Depression Total Score: 0 06/03/20 20 8:10 PM EDT documented as of this encounter Care Teams Fabric Worker Foreman Relationship Specialty Start Date End Date Selam nKowles CNP [address] [place] [address], [address] [address] [email or web address] PCP - General 09/30/17 Jamaal Lamb MD [address] [place] [address], [address] [address] [email or web address] Insurance Assigned Provider 02/21/24 02/20/25 Dom Marroquin MD [address] [place] [address] Ophthalmology 03/30/19 08/05/22 Shannon Andrade NP [address] [place] [address] [email or web address] Obstetrics and Gynecology 03/30/19 Breezy Barry MD [address] [place] [address] [email or web address] Gastroenterology 03/30/19 Khai Hall MD [address] [place] [address] Sleep Medicine 03/30/19 06/11/21 Yisel Talbot MD [address] [place] [address] Dermatology 06/06/20 Breezy Smith MD [address] [place], [place] [address] [place] [address] [email or web address] Ophthalmology 08/06/22 Jeanne Beltrán PA [address] [place] [address] [email or web address] Physician Infusion Nurse 03/04/23 Leonard Dumont MD [address] [place] [address] [email or web address] Gastroenterology 08/09/24 Sai Hollins MD [address] [place] [address] Cardiology 08/09/24 Selam Knowles CNP [address] [place] [address], [address] [place], [place] [phone] [email or web address] Insurance Assigned Provider 02/20/25 Yoly Cline RN [address] [place] [address], [address] [place] [address] [email or web address] Healthcare [facility] Webfed Offset Press Operator 03/15/25 04/05/25 documented as of this encounter Additional Source Comments The information contained in this document represents components of the legal health record. It is not the complete legal health record.[facility]
--- OUTSIDE RECORDS SUMMARY | 2025-09-01 10:16 | XMS_ITS | Encounter Summary ---
Author Organization [facility] Address [address] [employer] [facility] [address] [place] [address] Phone Care Team Providers Care Brine Tank Separator Operator Name Role Phone Selam Knowles CNP Primary Care Provider Jamaal Lmab MD Unavailable Dom Marroquin MD Unavailable Shannon Andrade SOCIAL AND HUMAN SERVICES ASSISTANT Unavailable [phone] Breezy Trinh MD Unavailable Khai Hall MD Unavailable Yisel Talbot MD Unavailable Suraj Solis OT Unavailable Breezy Smith MD Unavailable Jeanne Beltrán Unavailable Leonard Dumont MD Unavailable Sai Hollins MD Unavailable [phone] Selam Knowles MAINTENANCE WORKER [employer] Unavailable Yoly Cline RN Unavailable [email or web address] Encounter Details Date Type Department Care Team (Latest Contact Info) Description 01/11/2021 Prep for Surgery [facility] [address], [address] [place], [place] [address] Manoj Meehan MD [address] [place] [address] [place] [address] [email or web address] Dizziness and giddiness (Primary Dx) Social History Tobacco Use Types Packs/Day Years [...] Start Date Job End Date Retired from [employer] Not on file Not on file Not on file documented as of this encounter Plan of Treatment Upcoming Encounters Date Type Department Care Team (Late st Contact Info) Description 02/13/2026 10:00 AM EDT Office Visit [facility] [address] [place] [address] [place] [address] Selam Knowles, FELIX [address] [place] [address], [address] [place] [address] [email or web address] 07/03/2026 9:10 AM EDT Office Visit [facility] [address] [place] [address] [place] [address] Dom Benjamin DO [address] [place] [address] documented as of this encounter Results * PT-INR (01/11/2021 11:19 AM EST) PT 11.5 10.2 - 12.9 sec [facility] INR 1.0 0.9 - 1.1 [facility] Comment:Therapeutic range fo r oral Vitamin K antagonists: 2.0-3.5 Blood 01/11/2021 11:1 9 AM EST 01/11/2021 4:53 PM EST us Manoj Meehan MD LAB BLOOD ORDERABLES Franci l Result Performing Organization Address City[facility]/ZIP Co de Phone Number [address] [address] * (ABNORMAL) Basic metabolic panel (01/11/2021 11:19 AM EST) SODIUM 140 133 - 146 mmol/L [facility] CHLORIDE 103 96 - 108 mmol/L [facility] POTASSIUM 3.5 3.3 - 5.1 mmol/L [facility] CO2 28 21 - 35 mmol/L [facility] BUN 17 6 - 19 mg/dL [facility] CREATININE 0.80 0.5 - 1.5 mg/dL [facility] GLUCOSE 109(H) 70 - 99 mg/dL [facility] CALCIUM 9.4 8.4 - 10.3 mg/dL [facility] EGFR 76 >59 mL/min/1.7 3m2 [facility] Comment:Estimated glomerular filtration rate calculated using the CKD-EPI equation. ANION GAP 13 10 - 20 mmol/L [facility] Blood 01/11/2021 11:1 9 AM EST 01/11/2021 4:53 PM EST us Manoj Meehan MD LAB BLOOD ORDERABLES Franci l Result Performing Organization Address [facility] Co de Phone Number [address] [address] * (ABNORMAL) CBC and differential (01/11/2021 11:19 AM EST) WBC 8.55 4.00 - 11.00 K/uL [facility] Comment:Note Reference Range updates to all CBC and Differential results. RBC 4.70 3.72 - 5.30 M/uL [facility] HGB 13.9 11.4 - 15.9 g/dL [facility] Comment:Note updated Referen ce Ranges for all CBC and Differential results. HCT 41.5 34.2 - 46.8 % [facility] PLT 287 140 - 430 K/uL [facility] MCV 88.3 78.0 - 97.0 fL [facility] MCH 29.6 25.0 - 33.0 pg [facility] MCHC 33.5 32.0 - 36.0 g/dL [facility] RDW 13.7 11.0 - 16.0 % [facility] MPV 11.6 8.4 - 12.8 fl [facility] NRBC 0.00 0 /100 WBCs [facility] ABSOLUTE NRBC 0.00 0 K/uL [facility] DIFF METHOD Auto [facility] NEUTS 67.3 43.0 - 75.0 % [facility] LYMPHS 21.5 18.2 - 47.4 % [facility] MONOS 8.2 4.00 - 11.00 % [facility] EOS 1.3 0.0 - 8.0 % [facility] BASOS 1.3 0.0 - 2.0 % [facility] Granulocytes, immature (%) 0.4 0.0 - 0.9 % [facility] ABSOLUTE NEUTS 5.76 1.80 - 7.70 K/uL [facility] ABSOLUTE LYMPHS 1.84 1.00 - 3.10 K/uL [facility] ABSOLUTE MONOS 0.70 0.20 - 0.80 K/uL [facility] ABSOLUTE EOS 0.11 0.00 - 0.80 K/uL [facility] ABSOLUTE BASOS 0.11(H) 0.00 - 0.09 K/uL [facility] Granulocytes, immature 0.03 0.00 - 0.05 K/uL [facility] Blood 01/11/2021 11:1 9 AM EST 01/11/2021 4:53 PM EST us Manoj Meehan MD LAB BLOOD ORDERABLES Franci hatch Result [facility] [address] [place] [address] documented in this encounter Visit Diagnoses Diagnosis Dizziness and giddiness- Primary documented in this encounter Additional Health Concerns Assessment Noted Time PHQ-2 Depression Total Score: 0 06/03/20 20 8:10 PM EDT documented as of this encounter Care Teams Brine Tank Separator Operator Relationship Specialty Start Date End Date Selam Knowles CNP [address] [facility], [address] [place] [address] [email or web address] PCP - General 09/30/17 Jamaal Lamb MD [address] [facility], [address] [place] [address] [email or web address] [email or web address] Insurance Assigned Provider 02/21/24 02/20/25 Dom Marroquin MD [address] [place] [address] Ophthalmology 03/30/19 08/05/22 Shannon Andrade NP [address] [place] [address] [email or web address] [email or web address] Obstetrics and Gynecology 03/30/19 4 Breezy Trinh MD [address] [place] [address] [email or web address] [email or web address] Gastroenterology 03/30/19 Khai Hall MD [address] [address] Sleep Medicine 03/30/19 06/11/21 Yisel Talbot MD [address], [place] [address] Dermatology 06/06/20 Suraj Solis OT [address] [place] [address] [email or web address] Office SupportPit Hand Therapy 01/12/21 01/12/21 Breezy Smith MD [address] [place] [address], [address] [place] [address] [email or web address] Ophthalmology 08/06/22 Jeanne Beltrán PA [address] [facility] [address] [place] [address] [email or web address] [email or web address] Physician Vp Product 03/04/23 Leonard Dumont MD 10 [facility] 2 [place] [address] [email or web address] Gastroenterology 08/09/24 Sai Hollins MD [address] [place] [address] Cardiology 08/09/24 Selam Knowles CNP [address] [place] [address], [address] [place] [address] [email or web address] Insurance Assigned Provider 02/20/25 Yoly Cline, VICKY [address] [place] [address], [address] [place] [address] [email or web address] [email or web address] PHCM Office Support 03/15/25 04/05/25 documented as of this encounter Additional Source Comments The information contained in this document represents components of the legal health record. It is not the complete legal health record.[facility]
--- OUTSIDE RECORDS SUMMARY | 2025-09-01 10:16 | XMS_ITS | Patient Health Record ---
Author Organization [facility] Address [address] [facility] [address] [place] [address] Support Name Relationship Address Phone HERNANDEZ CHRIS Guarantor Unknown [phone] Reason For Referral No Information Medications Medication SIG (Take, Route, Fr equency, Duration) Notes Start Date End Date Status Aspirin EC 81MG 1 ORAL daily; Duration: -3 Zeb-MJ 012 Active Atenolol 25MG 1 ORAL DAILY; Duration: -3 Zeb-MJ 2 Active Levoxyl 100MCG 1 ORAL daily; Duration: -3 Zeb-MJ 03/03/20 12 Active Spironolactone 100MG 1 ORAL daily; Duration: -3 Zeb-MJ Active Problems Problem Type SNOMED Code ICD Code Onset Dates Problem Status W/U Status Risk Notes Problem Essential hypertension (05007467) Essential hypertension (401) Active confirmed Major Problem Palpitations (61738890) Palpitations (785.1) Active confirmed Diag Problem Diarrhea (12022775) Diarrhea (787.91) Active confirmed Diag Plan Of Treatment No Information Insurance Providers Payer Name Payer Address Payer Phone Subscriber Number Group Number Insured Name Patient Relationship to Insured Coverage Start Date Coverage End Date [facility] [address] [place] [address] [id number] CHRIS HERNANDEZ Self - patient is the insured
--- OUTSIDE RECORDS SUMMARY | 2025-09-01 10:16 | XMS_ITS | Encounter Summary ---
Author Organization [facility] Address [address] [facility] [address] [place] [address] Phone Care Team Providers Care Pediatric Oncology Nurse Name Role Phone Selam Knowles CNP Primary Care Provider Jamaal Lamb MD Unavailable Dom Marroquin MD Unavailable Shannon Andrade NP Unavailable [phone] Breezy Trinh MD Unavailable Yisel Talbot MD Unavailable [phone] Breezy Smith MD Unavailable [phone] Jeanne Beltrán Unavailable Leonard Dumont MD Unavailable Sai Hollins MD Unavailable [phone] Selam Knowles CNP Unavailable Yoly Cline RN Unavailable [email or web address] Encounter Details Date Type Department Care Team (Late st Contact Info) Description 10/30/2021 Procedure Pass Non-Invasive Cardiology [address] [place] [address] Social History Tobacco Use Types Packs/Day Years [...] Description 02/13/2026 10:00 AM EDT Office Visit [facility] [address] [place] [address] Selam Knowles CNP [address] [facility], [address] [place] [address] 07/03/2026 9:10 AM EDT Office Visit [facility] [address] [place] [address] Dom Benjamin DO 22 [place] [address] documented as of this encounter Visit Diagnoses Not on filedocumented in this encounter Additional Health Concerns Assessment Noted Time PHQ-2 Depression Total Score: 0 06/09/20 21 11:37 AM EDT documented as of this encounter Care Teams Pediatric Oncology Nurse Relationship Specialty Start Date End Date Selam Knowles CNP [address] [place] [address], [address] [address] PCP - General 09/30/17 Jamaal Lamb MD [address] [place] [address], [address] [address] Insurance Assigned Provider 02/21/24 02/20/25 Dom Marroquin MD [address] [place] [address] [id number] Ophthalmology 03/30/19 08/05/22 Shannon Andrade NP [address] [place] [address] [email or web address] Obstetrics and Gynecology 03/30/19 4 Breezy Trinh MD [address] [place] [address] [email or web address] Gastroenterology 03/30/19 Yisel Talbot MD [address] [place] [address] Dermatology 06/06/20 Breezy Smith MD [address] [place] [address], [address] [place] [address] [email or web address] Ophthalmology 08/06/22 Jeanne Beltrán PA [address] [place] [address] [email or web address] Physician Sample Carrier 03/04/23 Leonard Dumont MD [address] [place] [address] [email or web address] Gastroenterology 08/09/24 Sai Hollins MD [address] [place] [address] [phone] Cardiology 08/09/24 Selam Knowles CNP 22 [facility], [address] [place] [address] [email or web address] Insurance Assigned Provider 02/20/25 Yoly Cline RN [address] [facility] [place] [address] [email or web address] Station Support Specialist 03/15/25 04/05/25 documented as of this encounter Additional Source Comments The information contained in this document represents components of the legal health record. It is not the complete legal health record.[facility]
--- OUTSIDE RECORDS SUMMARY | 2025-09-01 10:17 | XMS_ITS | Encounter Summary ---
Author Organization [facility] Address [address] [facility] [address] [place] [address] Phone Care Team Providers Care Medical Anthropology Director Name Role Phone Selam Knowles CNP Primary Care Provider Jamaal Lamb MD Unavailable [phone] Dom Marroquin MD Unavailable Shannon Andrade NP Unavailable [phone] Breezy Trinh MD Unavailable Yisel Talbot MD Unavailable Breezy Smith MD Unavailable [phone] Jeanne Beltrán Unavailable Leonard Dumont MD Unavailable Sai Hollins MD Unavailable [phone] Selam Knowles CNP Unavailable Yoly Cline RN Unavailable [email or web address] Encounter Details Date Type Department Care Team (Late st Contact Info) Description 03/05/2022 Procedure Pass Non-Invasive Cardiology [address] [place] [address] Social History Tobacco Use Types Packs/Day [...] Description 02/13/2026 10:00 AM EDT Office Visit [facility] [address] [place] [address] Selam Knowles CNP 22 [facility], [address] [place] [address] 07/03/2026 9:10 AM EDT Office Visit [facility] 22 [place] [address] Dom Benjamin DO 22 [place] [address] documented as of this encounter Visit Diagnoses Not on filedocumented in this encounter Additional Health Concerns Assessment Noted Time PHQ-2 Depression Total Score: 0 06/09/20 21 11:37 AM EDT documented as of this encounter Care Teams Medical Anthropology Director Relationship Specialty Start Date End Date Selam Knowles CNP [address] [place] [address], [address] [address] PCP - General 09/30/17 Jamaal Lamb MD [address] [place] [address], [address] [address] Insurance Assigned Provider 02/21/24 02/20/25 Dom Marroquin MD [address] [place] [phone] Ophthalmology 03/30/19 08/05/22 Shannon Andrade NP [address] [place] [address] [email or web address] Obstetrics and Gynecology 03/30/19 4 Breezy Trinh MD [address] [place] [address] [email or web address] Gastroenterology 03/30/19 Yisel Talbot MD [address] [place] [address] Dermatology 06/06/20 Breezy Smith MD [address] [place] [address], [address] [place] [address] [email or web address] Ophthalmology 08/06/22 Jeanne Beltrán PA [address] [place] [address] [email or web address] Physician Yard Rigger 03/04/23 Leonard Dumont MD [address] [place] [address] [email or web address] Gastroenterology 08/09/24 Sai Hollins MD [address] [place] [address] [phone] Cardiology 08/09/24 Selam Knowles CNP 22 [facility], [address] [place] [address] [email or web address] Insurance Assigned Provider 02/20/25 Yoly Cline RN 22 [facility], [address] [place] [address] [email or web address] Drug Counselor 03/15/25 04/05/25 documented as of this encounter Additional Source Comments The information contained in this document represents components of the legal health record. It is not the complete legal health record.[facility]
--- OUTSIDE RECORDS SUMMARY | 2025-09-01 10:17 | XMS_ITS | Encounter Summary ---
Author Organization [facility] Address [address] [facility] [address] [place] [address] Phone Care Team Providers Care Director Client Services Name Role Phone Selam Knowles CNP Primary Care Provider [phone] Breezy Trinh MD Unavailable Yisel Talbot MD Unavailable [phone] Breezy Smith MD Unavailable [phone] Jeanne Beltrán Unavailable Leonard Dumont MD Unavailable [phone] Sai Hollins MD Unavailable [phone] Selam Knowles CNP Unavailable Reason for Visit * Reason Comments Medication Refill Encounter Details Date Type Department Care Team (Late st Contact Info) Description 06/14/2025 Refill [facility] [place] [facility] [address] [place] [address] [place] [address] Selam Knowles CNP 22 [facility], [address] [place] [address] Medication Refill Social History Tobacco Use Types Packs/Day Years Used Date Smoking Tobacco: Never Smokeless Tobacco: Never Alcohol Use Standard Drinks/Week Comments Not Currently 0 (1 standard drink = 0.6 oz pur e alcohol) Education Answer Date Recorded Are you interested in more education? Not on chani e 03/14/2023 Are you concerned about learning? Not on file 03/14/2023 No 03/14/2023 No 03/14/2023 Digital Access Answer Date Recorded No 04/12/2023 No 04/12/2023 Reliable internet access at home? Not on file 04/12/2023 Device with a working camera? Not on file Intimate Partner Violence Answer Date R ecorded Are you denied basic needs s uch as food, clothing, or medical care? No 08/02/2024 In the past 12 months have y ou been in a relationship with a person who hurts, threatens, or tries to control you? No 08/02/2024 Are you denied basic needs s uch as food, clothing, or medical care? No 08/02/2024 In the past 12 months have y ou been in a relationship with a person who hurts, threatens, or tries to control you? No 08/02/2024 Comments No Sex and Gender Information Value Date Recorded Sex Assigned at Female 05/02/2020 12:58 PM EDT Legal Sex Female 10:00 PM EDT Gender Identity Female 05/02/2020 12:58 PM EDT Sexual Orientation Not on file Occupation Industry Job Start Date Job End Date Retired from [employer] Not on file Not on file Not on file documented as of this encounter Plan of Treatment Upcoming Encounters Date Type Department Care Team (Late st Contact Info) Description 02/13/2026 10:00 AM EDT Office Visit [facility] [place] [facility] [address] [place] [address] Selam Knowles, FELIX [address] [facility], [address] [place] [address] 07/03/2026 9:10 AM EDT Office Visit [facility] [address] [place] [address] Dom Benjamin DO [address] [place] [address] documented as of this encounter Visit Diagnoses Diagnosis HTN (hypertension) Unspecified essential hypertension Type 2 diabetes mellitus without complication, without long-term current use of insulin DEONNA on CPAP documented in this encounter Additional Health Concerns Assessment Noted Time PHQ-2 Depression Total Score: 0 08/02/20 24 4:57 PM EDT documented as of this encounter Care Teams Director Client Services Relationship Specialty Start Date End Date HarishlucianaGracielamercy FELIX [address] [facility], [address] [place] [address] [email or web address] PCP - General 09/30/17 Breezy Trinh MD [address] [address] [email or web address] Gastroenterology 03/30/19 Ysiel Talbot MD [address] [address] Dermatology 06/06/20 Breezy Smith MD [address] [place] [address], [address] [place] [address] [email or web address] Ophthalmology 08/06/22 Jeanne Beltrán PA [address] [address] [email or web address] Physician Oven Loader 03/04/23 Leonard Dumont MD [address] [address] [email or web address] Gastroenterology 08/09/24 Sai Hollins MD [address] [place] [address] Cardiology 08/09/24 Selam Knowles CNP [address] [place] [address], [address] [place] [address] [email or web address] Insurance Assigned Provider 02/20/25 documented as of this encounter Additional Source Comments The information contained in this document represents components of the legal health record. It is not the complete legal health record.[facility]
--- OUTSIDE RECORDS SUMMARY | 2025-09-01 10:17 | XMS_ITS | Clinical Summary ---
Author Organization [facility] Address [address] [facility] [address] [place] [phone] Phone Care Team Providers Care Family Court Registrar Name Role Phone Carolina Daniel CNP Primary Care Provider [phone] Roverto Rajan MD Unavailable Yisel Talbot MD Unavailable Roverto Smith MD Unavailable [phone] Jeanne Beltrán Unavailable [phone] Leonard Dumont MD Unavailable [phone] Sai Hollins MD Unavailable [phone] Carolina Daniel CNP Unavailable Allergies Active Allergy Reactions Criticality Noted Date Comments Atorvastatin Fatigue Low 04/05/2022 Body aches Caffeine Headaches 06/24/2017 Gabapentin Rash Low 03/15/2024 Gluten Hives,Itching,Rash Low 03/07/2018 Other reaction(s): Flatulence Rosuvastatin Myositis High 02/11/2024 Body Aches Wheat GI Upset 05/31/2020 Yellow Dye Shortness Of Breath High 03/15/2024 Ezetimibe Hives 07/25/2022 Medications cholecalciferol (VITAMIN D3) 1,000 unit tablet Take 1,000 Units by mouth daily. Active calcium carb/magnesium carb (CALCIUM & MAGNESIUM CARBONATES ORAL) Take by mouth. Active ascorbic acid, vitamin C, (VITAMIN C) 250 MG tablet Take 500 mg by mouth daily. Active docosahexaenoic acid/epa (FISH OIL ORAL) Take by mouth. Active MAGNESIUM GLYCINATE ORAL Take by mouth. Active tretinoin (RETIN-A) 0.05 % cream APPLY SMALL PEA SIZED AMOUNT TO ENTIRE FACE EVERY OTHER NIGHT TOLERATED 12/08/19 25 Active alendronate (FOSAMAX) 70 MG tabletIndications: Osteopenia of left hip Take 1 tablet (70 mg total) by mouth every 7 days. Take in the morning with a full glass of water, on an empty stomach, and do not take anything else by mouth or lie down for the next 30 min. 12 tablet 4 07/04/20 25 Active tirzepatide (MOUNJARO) 5 mg/0.5 mL PnIj subcutaneous pen Inject 0.5 mL (5 mg total) under the skin once a week. 2 mL 2 08/08/20 25 Active atenolol (TENORMIN) 25 MG tabletIndications: PVC (premature ventricular contraction) Take 1 tablet (25 mg total) by mouth every morning. 90 tablet 3 08/30/20 25 Active chlorthalidone (HYGROTON) 25 MG tabletIndications: HTN (hypertension) Take 1 tablet (25 mg total) by mouth daily. 90 tablet 3 08/30/20 25 Active levothyroxine (SYNTHROID, LEVOTHROID) 112 MCG tabletIndications: Acquired hypothyroidism Take 1 tablet (112 mcg total) by mouth every morning. 90 tablet 3 08/30/20 25 Active atenolol (TENORMIN) 25 MG tabletIndications: PVC (premature ventricular contraction) take 1 tablet by mouth every day 90 tablet 3 07/21/20 24 025 Discontin ued(Reord er) chlorthalidone (HYGROTON) 25 MG tabletIndications: HTN (hypertension) Take 1 tablet (25 mg total) by mouth daily. 90 tablet 3 08/09/20 24 025 Discontin ued(Reord er) levothyroxine (SYNTHROID, LEVOTHROID) 112 MCG tabletIndications: Acquired hypothyroidism TAKE 1 TABLET BY MOUTH EVERY DAY 90 tablet 04/21/20 25 025 Discontin ued(Reord er) tirzepatide (MOUNJARO) 5 mg/0.5 mL PnIj subcutaneous pen Inject 0.5 mL (5 mg total) under the skin once a week. 2 mL 2 05/16/20 25 025 Discontin ued([facility]) Hospital, Clinic, or Other Facility Administered Medication Ordered Dose Route Frequency Start Date End Date Status triamcinolone acetonide (KENALOG-40) 40 mg/mL injection 80 mgIndications:Primary osteoarthritis of right knee 80 mg IM Once 07/22/2025 10/20/2025 Active BUPivacaine (PF) (MARCAINE) 0.25% injection 2 mLIndications:Primary osteoarthritis of right knee 2 mL See Adm Inst Once 07/22/2025 10/20/2025 Active lidocaine (XYLOCAINE) 1% injection 2 mLIndications:Primary osteoarthritis of right knee 2 mL Infil Once 07/22/2025 10/20/2025 Active Active Problems Problem Noted Date Diagnosed Date Primary osteoarthritis of right knee 08/16/2025 Assessment & Plan (08/16/2025 9:38 AM EDT): Knee pain improved with recent injection by orthopedics. Atherosclerosis of aorta 08/09/2024 Assessment & Plan (02/07/2025 10:32 AM EDT): Assessment & Plan (08/09/2024 12:10 PM EDT): Seen on imaging. She is intolerant of statin therapy and she is followed by cardiology. Adverse drug reaction 03/16/2024 Assessment & Plan (03/16/2024 2:33 PM EDT): Presumed from gabapentin started about a month ago. She has a history of reaction to yellow dye in the past and should avoid this. If pain worsens we could try to see if another drug cloud developer makes gabapentin without yellow dye though the reaction could also be just to the gabapentin itself. I recommend cool compresses, tepid showers. OK to use Benadryl but may use cetirizine during the day. Avoid scratching. Call with worsening, failure to resolve. Statin intolerance 03/15/2024 Spinal stenosis of lumbar re gion without neurogenic claudication 02/11/2024 Assessment & Plan (08/09/2024 12:11 PM EDT): Back pain is much improved after physical therapy. She continues in HEP daily. Assessment & Plan (03/16/2024 2:32 PM EDT): Pain peaked at the time of her last visit and has improved. She started PT at [facility] yesterday and will follow up with KYUNG Cantor in 6 weeks. Assessment & Plan (02/11/2024 12:06 PM EDT): Return to [facility]. Pain worsens over the course of the day and she will trial gabapentin 300 mg po qhs. She does not drink alcohol and will ensure that she does not operate heavy machinery within 8 hours of use. OK to use ibuprofen and Tylenol as needed. Sleep disturbance 09/30/2023 Assessment & Plan (09/30/2023 2:20 PM EST): Present since EGD/colonoscopy on 09/23. This feels similar to post-procedure sleep disruption after cholecystectomy. She tolerates lorazepam without difficulty. I have written a prescription for to use at bedtime and during the day as needed for more severe symptoms over the next couple of weeks. We reviewed the potential for habituation, misuse. She will not drive within 8 hours of use and will abstain from alcohol. Continue to avoid caffeine, continue regular walking. Considered low TSH but TSH in June was good and we plan to update this next month. If symptoms do not improve with short term treatment with lorazepam or they worsen, consider an alternate agent and additional labs. Hyperlipidemia associated with type 2 diabetes talib cat 09/09/2023 09/30/2023 Assessment & Plan (08/16/2025 9:38 AM EDT): LDL felt to be acceptable by cardiology given intolerance to statins and Zetia. Orders: Lipid panel; Future Assessment & Plan (03/23/2025 3:10 PM EDT): Cardiology at [facility] has indicated that lipid lowering isn't required. We discussed LDL goal <70 and ideally <55. We discussed injectables like Repatha. She will discuss further at her next visit with her specialist. Assessment & Plan (02/07/2025 10:32 AM EDT): Known atherosclerosis of the aorta. Intolerant of statin therapy and Zetia. She will follow up with cardiology at [facility] this summer. She denies cardiac symptoms. Orders: Lipid panel; Future Assessment & Plan (08/09/2024 12:11 PM EDT): Continue to monitor through cardiology. She is intolerant of oral therapeutics. Assessment & Plan (09/30/2023 2:20 PM EST): She is tolerated 3 day/week low dose rosuvastatin. Will update fasting labs in October per cardiology's recommendations. Medicare annual wellness visit, subsequent 08/05 Assessment & Plan (08/16/2025 9:38 AM EDT): Flu shot today. Eligible for Covid vaccine at the pharmacy. Continue regular mammography. Pap smears have been discontinued per ASCCP guidelines. Colonoscopy 2027 per GI. Labs as below. Continue regular dental care. Assessment & Plan (08/09/2024 12:12 PM EDT): She is up to date with vaccines including seasonal vaccinations. Continue regular mammography. Schedule [facility] follow up q2 years. Next colonoscopy 2027. Continue regular dental and eye care. Labs as ordered. Assessment & Plan (08/05/2023 5:02 PM EDT): Td and flu shot given today. We discussed Covid vaccine and RSV. She has an upcoming mammogram scheduled. Labs as below. Continue regular dental and eye care. Hiatal hernia 08/05/2023 Assessment & Plan (08/09/2024 12:12 PM EDT): She is asymptomatic and has not required PPI. She decided against surgical intervention. Assessment & Plan (02/11/2024 12:08 PM EDT): We discussed single gastric polyp, option to consult with surgeon to discuss repair. She will consider and discuss further with GI. Await GI note. Assessment & Plan (09/30/2023 2:21 PM EST): We reviewed the pathology of the polyp. She rarely uses NSAIDs; continue to avoid. Continue once daily omeprazole 20 mg daily. F/up with Dr. Rajan next week as scheduled. Assessment & Plan (08/05/2023 5:03 PM EDT): EGD is scheduled with colonoscopy in September. She is symptomatic. Await GI recommendations. Overweight (BMI 25.0-29.9) 08/05/2023 Assessment & Plan (08/16/2025 9:38 AM EDT): Assessment & Plan (03/23/2025 2:51 PM EDT): Assessment & Plan (02/07/2025 10:32 AM EDT): She is frustrated by weight gain. Await A1c. Could consider Ozempic or Mounjaro if she is interested. She has completed a HCP and will provide a copy at her next appointment. Type 2 diabetes mellitus wit hout complication, without long-term current use of insulin 03/22/2022 Assessment & Plan (08/16/2025 9:38 AM EDT): Check fasting labs tomorrow. She is tolerating Mounjaro with mild constipation managed with fiber supplements and in her diet. She has had fairly rapid weight loss (14 pounds in the past 6 weeks) and we discussed ensuring adequate dietary protein, adding resistance exercise. Check labs and first morning urine test. She has an upcoming eye exam. Monofilament exam is normal today and she denies neuropathy. Orders: CBC; Future Comprehensive metabolic panel; Future Hemoglobin A1c; Future Microalbumin/creatinine ratio, random urine; Future Assessment & Plan (03/23/2025 3:10 PM EDT): We discussed that her labs have been quite stable over time. She is frustrated by lack of energy, weight. It is reasonable to try Mounjaro. Common side effects reviewed, including nausea, abdominal discomfort, constipation, pancreatitis. We discussed the importance of adequate dietary protein, fiber, and water. Continue regular exercise and start adding resistance exercises. Send a clinical update in 3 weeks and will titrate to 5 mg weekly and then follow up in person ~2 months later. We reviewed side effects that would warrant sooner evaluation. Ensure that eye doctor has diagnosis of DM II for next exam. Orders: tirzepatide (MOUNJARO) 2.5 mg/0.5 mL PnIj subcutaneous pen; Inject 0.5 mL (2.5 mg total) under the skin once a week for 4 doses. Assessment & Plan (02/07/2025 10:32 AM EDT): Update fasting labs in the next month. She is up to date with eye exams through [facility]. Normal monofilament exam today. A1c has been adequately controlled with lifestyle thus far. Orders: CBC; Future Comprehensive metabolic panel; Future Hemoglobin A1c; Future Assessment & Plan (08/09/2024 12:10 PM EDT): Adequately controlled with diet. Update lab today. Await note from recent diabetic eye exam. Monitor twice yearly. Ensure adequate BP control. Assessment & Plan (02/11/2024 12:07 PM EDT): Recent A1c was adequately controlled at 6.6% with lifestyle modifications. Monitor twice yearly. Schedule next MSAWV. Assessment & Plan (08/05/2023 5:04 PM EDT): Stable A1c and at goal of <7%. She is frustrated by weight gain and we discussed use of metformin with careful monitoring for hypoglycemia and the increased risk of this in the older population. She prefers to update TSH and A1c in about 3 months and decide at that time. Continue regular eye care. Candidate for statin therapy due to risk of future cardiovascular event 03/22/2022 Assessment & Plan (02/11/2024 12:07 PM EDT): Statin intolerant. Hives with Zetia. Await recommendations from [facility] cardiology at upcoming appointment. BP is well controlled on atenolol. Left bundle branch block 04/29/2019 Assessment & Plan (08/16/2025 9:38 AM EDT): Loop recorder will be removed in August. Assessment & Plan (08/09/2024 12:11 PM EDT): Continue with cardiology. She takes atenolol daily. Angioedema 06/18/2018 Overview (06/18/2018): Due to ACEI vs other DEONNA on CPAP 05/07/2018 Assessment & Plan (08/16/2025 9:38 AM EDT): Managed by sleep medicine. Assessment & Plan (03/23/2025 3:10 PM EDT): She will let her sleep medicine provider know about the new medication. Orders: tirzepatide (MOUNJARO) 2.5 mg/0.5 mL PnIj subcutaneous pen; Inject 0.5 mL (2.5 mg total) under the skin once a week for 4 doses. Assessment & Plan (02/07/2025 10:32 AM EDT): She uses CPAP nightly and tolerates well. Follow up with sleep medicine as planned. Assessment & Plan (08/09/2024 12:11 PM EDT): She uses CPAP nightly. Managed by sleep medicine in [place]. HTN (hypertension) 05/07/2018 Assessment & Plan (08/16/2025 9:38 AM EDT): Blood pressure control is adequate on current medication (2nd reading with appropriate size cuff). Reach out to cardiology if she has symptoms of hypotension as they considering medication adjustment (atenolol) at last visit. Assessment & Plan (02/07/2025 10:32 AM EDT): Well controlled. No adjustment to current therapy. Assessment & Plan (08/09/2024 12:12 PM EDT): At goal on current treatment regimen. Update BMP given chlorthalidone. Assessment & Plan (08/05/2023 5:04 PM EDT): Well controlled on current regimen. Family history of hip fracture 05/07/2018 Acquired hypothyroidism 05/07/2018 Assessment & Plan (08/16/2025 9:38 AM EDT): She has lost 10% of her body weight since last draw. Check with labs tomorrow. Orders: TSH with reflex; Future Assessment & Plan (03/23/2025 3:10 PM EDT): We discussed that 10% weight loss would warrant labs to evaluate TSH/consider dropping medication. She will let me know when she meets this threshold. Assessment & Plan (02/07/2025 10:32 AM EDT): Well controlled on current medication. Assessment & Plan (08/09/2024 12:13 PM EDT): She feels well on current dosing. Update TSH in January 2025. Assessment & Plan (08/05/2023 5:04 PM EDT): TSH was at goal on recent labs but will check again in 3 months to ensure no upward trend. Osteopenia of left hip 05/07/2018 Assessment & Plan (08/16/2025 9:38 AM EDT): She had muscle cramping after her 2nd week of alendronate and she held it on 08/14 and will hold again on 08/21 and then provide an update to Dr. Benjamin. Assessment & Plan (07/04/2025 10:04 AM EDT): She has osteopenia and high risk for fracture so she will benefit from antiresorptive medication. She is does not get adequate calcium intake so she is going to have to make sure to take calcium supplements and probably increase her dietary calcium intake. Calcium comes in the form of dairy, greens beings etc. I discussed with her taking possibly calcium citrate or calcium carbonate in divided doses with food. So she should try to get an estimate of how much dietary calcium she gets on a daily basis and supplement with calcium supplements appropriately. As for alendronate she has to take this fasting in the morning and wait half an hour before eating. She sure to remain upright in a sitting, standing or walking position she should not lie down. She should repeat lab work 2 weeks prior to the follow-up visit in a year and must be done without exercise. Assessment & Plan (03/17/2025 10:34 AM EDT): The patient was likely diagnosed with osteopenia in 2017. She has had decrease in bone mineral density since. Risk factors for osteoporosis include her age, menopause, family history of osteoporosis. She has had 3 inches decrease in height and at least 1 fragility fracture. FRAX score was calculated at 27% for major osteoporotic fracture and 10% for hip fracture. The radiologist calculated hip fracture at 7% and major osteoporotic fracture 18.5%. Because she has such high FRAX score she will benefit from antiresorptive medications. At this point what I would like to do is to request biochemical evaluation for secondary causes of osteoporosis. I will give the patient information on osteoporosis including medications that potentially she can use for the treatment of osteopenia. Assessment & Plan (02/07/2025 10:32 AM EDT): Upcoming appointment with endocrinology given family h/o osteoporotic fracture. She did not reduce her vitamin D intake after her last labs. Hold until seen by endocrinology. Continue calcium at least 4 hours apart form levothyroxine, dietary calcium, weight bearing activity. Assessment & Plan (08/09/2024 12:09 PM EDT): Continue regular weight bearing activity, dietary and supplemental calcium and vitamin D. She is amenable to updating DXA which is ordered. Assessment & Plan (08/05/2023 5:03 PM EDT): Discussed updating DXA 3-5 years after last. Encouraged weight bearing activity as tolerated by joint pain. Dietary and supplemental calcium, supplemental vitamin D discussed. Ventricular premature beats 05/07/2018 Assessment & Plan (03/16/2024 2:32 PM EDT): Followed by [facility]. Intolerant of statins and Zetia. Waiting to see if new agent is covered. F/up with cardiology as scheduled. Assessment & Plan (08/05/2023 5:06 PM EDT): Follow up with cardiology at [facility] as scheduled. Loop recorder is in place. I mailed her a copy of her coronary artery calcium score. She was intolerant of statins and Zetia. Resolved Problems Problem Noted Date Diagnosed Date Resolved Date Chronic heel pain, left 08/05/2023 03/2 05/2024 Assessment & Plan (08/05/2023 5:02 PM EDT): Pain since last winter. Referred to podiatry to discuss further. Chronic left hip pain 08/06/20222024 Assessment & Plan (08/05/2023 5:05 PM EDT): She continues with HEP. Upcoming follow up is scheduled with [facility]. Palpitations 04/29/2019 06/06/2020 Pre-diabetes 05/07/2018 08/06/2022 Postmenopausal 05/07/2018 03/30/2019 Fatigue 05/07/2018 03/30/2019 Encounters Date Type Department Care Team Description 08/17/2025 7:43 AM EDT - 08/17/2025 11:59 PM EDT Hospital Encounter [facility] [address] [place] [address] Carolina Daniel CNP Discharge Disposition: Home or Self Care 08/16/2025 9:00 AM EDT Office Visit [facility] [address] [place] [address] Carolina Daniel CNP Medicare annual wellness visit, subsequent (Primary Dx); Type 2 diabetes mellitus without complication, without long-term current use of insulin; Primary hypertension; Left bundle branch block; Hyperlipidemia associated with type 2 diabetes mellitus; Acquired hypothyroidism; Foot cramps; Osteopenia of left hip; Primary osteoarthritis of right knee; DEONNA on CPAP; Overweight (BMI 25.0-29.9); Immunization counseling; Needs flu shot 07/22/2025 9:00 AM EDT Office Visit [facility] [address] [place] [phone] Kesha Drake MD Primary osteoarthritis of right knee (Primary Dx) 07/04/2025 9:50 AM EDT Office Visit [facility] [address] [place] [address] [place] [address] Dom Benjamin DO Osteopenia of left hip (Primary Dx) 06/30/2025 Orders Only [address] [place] [address] Vero Acuña MD 06/29/2025 1:15 PM EDT - 06/29/2025 11:59 PM EDT Hospital Encounter [facility], X-Ray - [address] [place] [address] Vero Acuña MD Discharge Disposition: Home or Self Care 06/29/2025 1:00 PM EDT Office Visit [address] [place] [address] Vero Acuña MD Acute pain of right knee (Primary Dx) 06/29/[address] [place] [address] Pati [place]ley, VICKY Knee Injury 06/14/[address] [place] [address] Carolina Daniel, FELIX Medication Refill 06/14/[address] [place] [address] Terence Amin CNP Medication Refill from Last 3 Months Immunizations Immunization Administration Dates Next Due COVID-19 (Pre-09/08) Pfizer Vaccine, Bivalent 12+ 08/19/2022 COVID-19 (Pre) Pfizer Vaccine, mRNA, PF 08/27/2021,01/19/2021,12/29/2020 INFLUENZA, SPLIT VIRUS, TRIVALENT PF 08/19/2016, 10/12/2014 INFLUENZA, SPLIT VIRUS, TRIV ALENT W/ PRESERVATIVE IM 09/20/2015,10/12/2014,10/18/2013,08/06 Influenza High-Dose Quadriva lent Preservative Free IM 08/05/2023,08/09/2022,09/19/2021 Influenza High-Dose Trivalen t Preservative Free IM 08/16/2025,08/02/2024,09/29/2019,08/10 Influenza Quadrivalent Adjuv anted Preservative Free IM 08/04/2020 Influenza Quadrivalent Prese rvative Free IM 09/20/2015,09/20/2015 Influenza, Unspecified Formulation 09/17/2018, Pneumococcal conjugate PCV13 06/24/2017 Pneumococcal polysaccharide PPSV23 11/13/2018 RSV Vaccine (monovalent, adjuvanted) 11/18/2024 Td (adult),2 Lf Tetanus Toxo id, PF, Adsorbed 08/05/2023 Tdap 04/19/2013 Zoster live 04/19/2013 Zoster recombinant 03/23/2021,11/21/2020 Family History Medical History Relation Comments CV disease Father Smoker Hypertension Father Pacemaker Father Parkinson's disease Father Sudden cardiac Maternal Grandfather Diabetes type II Maternal Grandmother Stroke Maternal Grandmother x2 Angina Mother Brain tumor Mother Benign Diabetes type II Mother Dx age 80s Heart failure Mother CHF Hypertension Mother Osteoporotic fracture Mother Hip, arm Other Mother Benign breast cy st Lung cancer Paternal Grandfather Smoker Stroke Paternal Grandmother age 30 s Appendicitis Sister Cataracts Sister Diabetes Sister Hypertension Sister Overweight Sister Stroke Sister Smoker, drinker. Sedentary. Vitamin D deficiency Sister osteomyelitis Sister Related to open wound from loop recorder Desiree Parkinson White syndrome Son 1 D x at 5 months, ablation x 2 Sleep apnea Son 2 Breast cancer Neg Hx Colon cancer Neg Hx Glaucoma Neg Hx Macular degeneration Neg Hx Prostate cancer Neg Hx Relation Status Comments Father (Age 84) Maternal Grandfather Maternal Grandmother Mother (Age 88) Paternal Grandfather Paternal Grandmother Sister Alive Son 1 Alive Son 2 Alive Social History Tobacco Use Types Packs/Day Years [...] as food, clothing, or medical care? No 08/09/2025 In the past 12 months have y ou been in a relationship with a person who hurts, threatens, or tries to control you? No 08/09/2025 Are you denied basic needs s uch as food, clothing, or medical care? No 08/09/2025 In the past 12 months have y ou been in a relationship with a person who hurts, threatens, or tries to control you? No 08/09/2025 Comments No Sex and Gender Information Value Date Recorded Sex Assigned at Female 05/02/2020 12:58 PM EDT Legal Sex Female 10:00 PM EDT Gender Identity Female 05/02/2020 12:58 PM EDT Sexual Orientation Not on file Occupation Industry Job Start Date Job End Date Retired from [employer] Not on file Not on file Not on file Last Filed Vital Signs Vital Sign Reading Time Taken Comments Blood Pressure 110/62 08/16/2025 9:21 AM EDT Pulse 70 08/16/2025 9:00 AM EDT Temperature 35.3 C (95.6 F) 08/16/2025 9:00 AM EDT Respiratory Rate 12 09/23/2023 12:42 PM EST Oxygen Saturation 97% 08/16/2025 9:00 AM EDT Inhaled Oxygen Concentration - - Weight 76.9 kg (169 lb 9.6 oz) 08/16/2025 9:00 A M EDT Height 171 cm (5' 7.32 ) 08/16/2025 9:00 AM EDT Body Mass Index 26.31 08/16/2025 9:00 AM EDT Plan of Treatment Upcoming Encounters Date Type Department Care Team (Late st Contact Info) Description 02/13/2026 10:00 AM EDT Office Visit [facility] [place] [facility] [address] [place] [address] Carolina Daniel, FELIX [address] [facility], [address] [place] [address] 07/03/2026 9:10 AM EDT Office Visit [facility] [address] [place] [address] Dom Benjamin DO [address] [place] [address] [email or web address] Health Maintenance Due Date Last Done Comments COLOGUARD 02/22/1997 FIT TEST 02/22/1997 FOBT 02/22/1997 SIGMOIDOSCOPY 02/22/1997 VIRTUAL COLONOSCOPY 02/22/1997 COVID-19 VACCINE ( season) 2025 08/02/2024, 11/05/2023, 06/03/2023, Additional history exists DIABETIC EYE EXAM 08/09/2025 08/09/2024, , 04/02/2022 BLOOD PRESSURE 02/13/2026 08/16/2025 HEMOGLOBIN A1C 02/15/2026 08/17/2025, 01/16, 08/09/2024, Additional history exists DEPRESSION SCREENING 08/09/2026 08/09/2025 LIPID PANEL 08/17/2026 08/17/2025, 01/16, 12/18/2023, Additional history exists POTASSIUM LEVEL 08/17/2026 08/17/2025, 05/0 04/2025, 02/10/2025, Additional history exists TSH LEVEL 08/17/2026 08/17/2025, 01/15, 12/18/2023, Additional history exists URINE MICROALBUMIN/CREATININE RATIO 08/17/2026 08/17/2025, 08/09/2024, 07/15/2023, Additional history exists MAMMOGRAM 08/26/2026 08/26/2024, 03/2023, 08/15/2022, Additional history exists COLONOSCOPY 09/23/2028 09/23/2023, 05/17, 09/29/2014, Additional history exists COLORECTAL CANCER SCREENING 09/23/2028 Adult Td,Tdap Booster 08/05/2033 08/05/2023, 013 HEPATITIS C SCREENING Completed 03/25/2016 PNEUMOCOCCAL VACCINES (50+ years) Completed 11/13/2018, 06/24/2017 ZOSTER VACCINES Completed 03/23/2021, 03/2021, 04/19/2013 OSTEOPOROSIS SCREENING INITIAL (ONE-TIME) Completed 09/02/2024, 07/31/2021, 06/24/2017 RSV VACCINE Completed 11/18/2024 INFLUENZA VACCINE Completed 08/16/2025, , 08/05/2023, Additional history exists SMOKING STATUS SCREENING (Once After 26 Yrs) Completed 08/16/2025 HEPATITIS A VACCINES Aged Out No long er eligible based on patient's age to complete this topic HIB VACCINES Aged Out No longer eligi ble based on patient's age to complete this topic MENINGOCOCCAL VACCINES (ACWY) Aged Out No longer eligible based on patient's age to complete this topic MENINGOCOCCAL VACCINES (B) Aged Out N o longer eligible based on patient's age to complete this topic Medical Devices Implanted Type Area Quality Control Microbiologist Device Identifier Shelf Expiration Date Model / Serial / Lot Clip Hemostasis 360deg 235cm Resolution 360 Latex Free 2.8mm Channel Bx/20ea - [id number] Implanted:Qty : 2 on 09/23/2023 by Roverto Rajan MD at [facility] [employer]ip [employer] [id number] 11/19/20263 / / Description:Gastric x2 Monitor Cardiac Reveal Loop Recorder System - [id number] Implanted:Qty : 1 on 01/12/2021 by Manoj Meehan MD at [facility] Implantable Monitor [employer] [id number] 09/30/2021 LNQ11 / [id number] / Lens Lens Bilater al: Eye Procedures Procedure Name Priority Date/Time Associated Diagnosis Comments CBC Routine 08/17/2025 7:46 AM EDT Type 2 diabetes mellitus without complication, without long-term current use of insulin COMPREHENSIVE METABOLIC PANEL Routine 08/17/2025 7:46 AM EDT Type 2 diabetes mellitus without complication, without long-term current use of insulin HEMOGLOBIN A1C Routine 08/17/2025 7:46 AM EDT Type 2 diabetes mellitus without complication, without long-term current use of insulin LIPID PANEL Routine 08/17/2025 7:46 AM EDT Hyperlipidemia associated with type 2 diabetes mellitus MICROALBUMIN/CREATINI NE RATIO, RANDOM URINE Routine 08/17/2025 7:46 AM EDT Type 2 diabetes mellitus without complication, without long-term current use of insulin MAGNESIUM Routine 08/17/2025 7:46 AM EDT Foot cramps TSH WITH REFLEX Routine 08/17/2025 7:46 AM EDT Acquired hypothyroidism XR KNEE 4 OR MORE VIEWS (RIGHT) Routine 06/29/2025 1:35 PM EDT Acute pain of right knee BD DXA MONITORING Routine 09/02/2024 11: 24 AM EDT Osteopenia of neck of left femur HM MAMMOGRAPHY Routine 08/26/2024 11:36 AM EDT DIABETES EYE EXAM FOR RESULT ENTRY ONLY Routine 08/09/2024 1:42 PM EDT ENDOSCOPY, COLON 09/23/2023 11:4 0 AM EST OUTSIDE HEPATITIS C VIRUS SCREENING Routine 03/25/2016 from Last 3 Months or Most Recently Relevant to Health Maintenance Results * (ABNORMAL) Comprehensive metabolic panel (08/17/2025 7:46 AM EDT) SODIUM 140 133 - 146 mmol/L [facility] POTASSIUM 3.9 3.3 - 5.1 mmol/L [facility] CHLORIDE 102 96 - 108 mmol/L [facility] CO2 29 21 - 35 mmol/L [facility] BUN 11 6 - 19 mg/dL [facility] CREATININE 0.70 0.5 - 1.5 mg/dL [facility] GLUCOSE 104(H) 70 - 99 mg/dL [facility] ALBUMIN 4.0 3.9 - 4.8 g/dL [facility] TOTAL PROTEIN 6.5 6.5 - 8.0 g/dL [facility] CALCIUM 9.2 8.4 - 10.3 mg/dL [facility] ALKALINE PHOSPHATASE 64 39 - 117 U/L [facility] TOTAL BILIRUBIN 0.5 0.0 - 1.2 mg/dL [facility] AST 18 0 - 37 U/L [facility] ALT 18 0 - 40 U/L [facility] GLOBULIN 2.5 1 - 4.8 g/dL [facility] EGFR 91 >59 mL/min/1.7 3m2 [facility] Comment:Estimated glomerular filtration rate calculated using the CKD-EPI refit equation. ANION GAP 13 10 - 20 mmol/L [facility] Blood 08/17/2025 7:46 AM EDT 08/17/2025 7:51 AM EDT [facility] LAB BLOOD ORDERABLES Franci l Result [address] [address] * TSH with reflex (08/17/2025 7:46 AM EDT) TSH 1.46 0.27 - 4.20 uIU/mL [facility] Blood 08/17/2025 7:46 AM EDT 08/17/2025 7:51 AM EDT [facility] LAB BLOOD ORDERABLES Franci l Result Performing Organization Address City/[facility]/ZIP Co de Phone Number [address] [address] * Microalbumin/creatinine ratio, random urine (08/17/2025 7:46 AM EDT) URINE MICROALBUMIN <1.2 0 - 2.3 mg/dL [facility] URINE CREATININE 48 mg/dL [facility] MICROALB/CRE RATIO NOT CALCULATED 0 - 20 mg/g Cre [facility] Comment:due to Microalbumin <1.2 Urine (Urine) 08/17/2025 7:4 6 AM EDT 08/17/2025 7:51 AM EDT Carolina Daniel CNP URINE ORDERABLES Final Re sult Performing Organization Address [facility] Co de Phone Number [address] [address] * (ABNORMAL) CBC (08/17/2025 7:46 AM EDT) Pathologist [facility] WBC 9.43 4.00 - 11.00 K/uL [facility] RBC 4.73 4.00 - 5.20 M/uL [facility] HGB 14.4 12.0 - 16.0 g/dL [facility] HCT 43.1 36.0 - 46.0 % [facility] PLT 283 150 - 450 K/uL [facility] MCV 91.1 80.0 - 100.0 fL [facility] MCH 30.4 27.0 - 31.0 pg [facility] MCHC 33.4 32.0 - 36.0 g/dL [facility] RDW 14.6(H) 11.5 - 14.5 % [facility] MPV 10.6 8.4 - 12.0 fL [facility] NRBC 0.00 0.00 /100 WBCs [facility] ABSOLUTE NRBC 0.00 0.00 K/uL [facility] Blood 08/17/2025 7:46 AM EDT 08/17/2025 7:51 AM EDT Carolina Daniel CNP LAB BLOOD ORDERABLES Franci l Result Performing Organization Address [facility]/ZIP Co de Phone Number [address] [address] * Magnesium (08/17/2025 7:46 AM EDT) MAGNESIUM 2.4 1.6 - 2.6 mg/dL [facility] Blood 08/17/2025 7:46 AM EDT 08/17/2025 7:51 AM EDT [facility] LAB BLOOD ORDERABLES Franci l Result Performing Organization Address City/[facility]/ZIP Co de Phone Number [address] [address] * Hemoglobin A1c (08/17/2025 7:46 AM EDT) HEMOGLOBIN A1C 5.6 4.3 - 5.8 % [facility] Blood 08/17/2025 7:46 AM EDT 08/17/2025 7:51 AM EDT [facility] LAB BLOOD ORDERABLES Franci l Result Performing Organization Address [facility] Co de Phone Number [address] [address] * Lipid panel (08/17/2025 7:46 AM EDT) HDL 37 mg/dL [facility] Comment: Interpretation <40 mg/dL: Low HDL cholesterol (major risk factor for CHD) Greater than or equal to 60 mg/dL: High HDL cholesterol ( negative risk factor for CHD) HDL - cholesterol is affected by a number of factors, e.g. smoking, excerise, hormones, sex and age. CHOLESTEROL 143 0 - 240 mg/dL [facility] TRIGLYCERIDES 84 30 - 160 mg/dL [facility] LDL 89 50 - 129 mg/dL [facility] Comment: LDL levels in terms of risk for coronary heart disease: <100 mg/dL: Optimal 100-129 mg/dL: Near or above optimal 130-159 mg/dL: Borderline high 160-189 mg/dL: High >190 mg/dL: Very High CARDIAC RISK RATIO 3.9 3.3 - 4.4 [facility] Blood 08/17/2025 7:46 AM EDT 08/17/2025 7:51 AM EDT us Carolina Rodriguezjonathan DRY ROOM OPERATOR LAB BLOOD ORDERABLES Franci l Result [address] [address] * XR KNEE 4 OR MORE VIEWS (RIGHT) (06/29/2025 1:35 PM EDT) Anatomical Region Laterality Modality Knee Right Computed Radiogr aphy 06/30/2025 11:5 3 AM EDT Impressions 06/30/2025 11:55 AM EDT FINDINGS/IMPRESSION: There is no evidence of acute fracture, subluxation, or dislocation. There is moderate to marked lateral patellofemoral compartment joint space narrowing with associated marginal osteophytosis. There is mild medial and lateral tibiofemoral compartment joint space narrowing. There is a trace joint effusion. Narrative 06/30/2025 11:55 AM EDT XR KNEE 4 OR MORE VIEWS (RIGHT) 06/29/2025 1:21 PM Referring clinician's provided indication for this examination in [facility]: Pain COMPARISON: None Procedure Note Alejandra Montes MD - 06/30/2025 XR KNEE 4 OR MORE VIEWS (RIGHT) 06/29/2025 1:21 PM Referring clinician's provided indication for this examination in [facility]:Pain COMPARISON: None IMPRESSION: FINDINGS/IMPRESSION: There is no evidence of acute fracture, subluxation, or dislocation. Thereis moderate to marked lateral patellofemoral compartment joint spacenarrowing with associated marginal osteophytosis. There is mild medial andlateral tibiofemoral compartment joint space narrowing. There is a tracejoint effusion. us Vero Acuña MD IMG XR LOWER EXTREMITY Fin al Result * DXA Monitoring (09/02/2024 11:24 AM EDT) Anatomical Region Laterality Modality Bone Density Bone Density us Carolina Daniel DRY ROOM OPERATOR IMG BD BONE DENSITY DEXA Final Result * HM MAMMOGRAPHY FOR RESULT ENTRY ONLY (08/26/2024 11:36 AM EDT) us Carolina Daniel DRY ROOM OPERATOR HEALTH MAINTENANCE Edited Result - Final * DIABETES EYE EXAM FOR RESULT ENTRY ONLY (08/09/2024 1:42 PM EDT) us Unknown Unknown MD HEALTH MAINTENANCE Final Resu lt * ENDOSCOPY, COLON (09/23/2023 11:40 AM EST) Narrative Transcriptions Roverto Rajan MD - 09/23/2023 11:40 AM EST [facility] Patient Name: Jenni Pruett Attending MD:: ROVERTO RAJAN MD, Procedure Date: 09/23/2023 11:40 AM Date of : 1950 Age: 73 Admit Type: Outpatient Gender: Female Room: [place] [address] Referring MD: CAROLINA DANIEL Exam Type: Colonoscopy Indications: High risk colon cancer surveillance: Personalhistory of colonic polyps, Last colonoscopy: May 2020 Medications: Propofol per Anesthesia Procedure: Informed consent was obtained from the patientafter discussion of the indications, limitations, alternatives, benefits, and risks of the procedure. Risks specifically discussed include but are not limited to medication reactions, missed lesions, bleeding, perforation, or the need for emergent surgery. Throughout the procedure, the patient's blood pressure, pulse, end-tidal CO2, and oxygensaturations were monitored continuously. The Olympus adult variable colonoscope [id number] #7 was introduced through the anus and advanced to the cecum, identified by appendiceal orifice andileocecal valve. The ileocecal valve, appendiceal orifice,and rectum were photographed. The colonoscopy wassomewhat difficult due to significant looping. Successful completion of the procedure was aided by applying abdominal pressure. The patient tolerated the procedure well. The quality of the bowelpreparation was good. The bowel preparation used was GoLYTELYvia split dose instruction. Complications: No immediate complications. Estimated blood loss:None. Findings: The perianal and digital rectal examinations were normal. Pertinent negatives include no palpablerectal lesions. Internal hemorrhoids were found duringretroflexion. The hemorrhoids were small. A few small-mouthed diverticula were found in the sigmoid colon. The colon (entire examined portion) wassignificantly redundant. The exam was otherwise without abnormality. Retroflexion in the right colon was performed. Impression: - Internal hemorrhoids. - Diverticulosis in the sigmoid colon. - Redundant colon. - The examination was otherwise normal. - No specimens collected. Recommendation: - Repeat colonoscopy in 5 years for surveillance. ROVERTO RAJAN MD 09/23/2023 12:28:18 PM This report has been signed electronically. Number of Addenda: 0 Note Initiated On: 09/23/2023 11:40 AM Procedure Code(s): --- Professional --- 70069, Colonoscopy, flexible; diagnostic, including collection of specimen(s) by brushing or washing, when performed (separateprocedure) --- Technical --- 28913, Colonoscopy, flexible; diagnostic, including collection of specimen(s) by brushing or washing, when performed (separateprocedure) Diagnosis Code(s): --- Professional --- Z86.010, Personal history of colonic polyps K64.8, Other hemorrhoids K57.30, Diverticulosis of large intestine without perforation or abscess without bleeding Q43.8, Other specified congenital malformations of intestine --- Technical --- Z86.010, Personal history of colonic polyps K64.8, Other hemorrhoids K57.30, Diverticulosis of large intestine without perforation or abscess without bleeding Q43.8, Other specified congenital malformations of intestine CPT copyright 2021 [employer]. All rights reserved. The codes documented in this report are preliminary and upon pallet stone positioner reviewmay be revised to meet current compliance requirements. Procedure Date: 09/23/2023 11:40:59 AM [address] [place] [address] Carolina Daniel CNP GI PROCEDURE ORDERABLES F inal Result * Outside Hepatitis C Virus Screening (03/25/2016) Hepatitis C Screening - External Neg Historical Provider LAB BLOOD ORDERABLES Franci l Result from Last 3 Months or Most Recently Relevant to Health Maintenance Insurance MEDICARE PART A & B [facility] EXTENSION MEDICARE SUPPLEMENT MEDICARE PART A & B [employer] MEDICARE SUPPLEMENT MEDICARE PART A & B [employer] EXT[employer]ION MEDICARE SUPPLEMENT MEDICARE PART A & B [facility] EXTENSION MEDICARE SUPPLEMENT MEDICARE PART A & B [employer] EXTENSION MEDICARE SUPPLEMENT MEDICARE PART A & B Member Subscriber Plan / Payer (Ef fective 2017-Present) Name:Jenni Pruett Member ID:[id number] Relation to Subscriber:Self Name:Jenni Pruett Subscriber ID:[id number] Payer ID:[id number] Group ID:Not on file Type:Medicare Address: [employer] [address] [place] [address] [place] [address] EXTENSION MEDICARE SUPPLEMENT MEDICARE PART A & B maker[employer]QR MEDICARE SUPPLEMENT MEDICARE PART A & B [employer] MEDICARE SUPPLEMENT MEDICARE PART A & B [facility] EXTENSION MEDICARE SUPPLEMENT Advance Directives For more information, please contact: [phone] (9AM - 5PM Carol/[facility], Friday-Friday) Documents on File Type Date Recorded Patient Manager Water [employer] Expl anation Healthcare Proxy 03/30/2025 HEALTHCARE PROXY 12.13.12 * Full Code (Latest Code Status on File) Date Activated Date Inactivated Comments 01/12/2021 7:52 AM 06/03/2022 2:25 AM Question Answer Comments Code Status Confirmed With: Patient Care Teams Family Court Registrar Relationship Specialty Start Date End Date Carolina Daniel CNP [address] [facility] [place] [address] [email or web address] PCP - General 09/30/17 Roverto Rajan MD [address] [facility] 2 [place] [address] [email or web address] Gastroenterology 03/30/19 Yisel Talbot MD [address] [place] [address] Dermatology 06/06/20 Roverto Smith MD [address] [place] [address], [address] [place] [address] [email or web address] Ophthalmology 08/06/22 Jeanne Beltrán PA [address] [facility] [address] [place] [address] [email or web address] Physician Fibre Optic Cable Splicer 03/04/23 Leonard Dumont MD 10 [facility] 2 [place] [address] [email or web address] Gastroenterology 08/09/24 Sai Hollins MD [address] [place] [address] Cardiology 08/09/24 Carolina Daniel CNP [address] [facility] [place] [address] [email or web address] Insurance Assigned Provider 02/20/25 Additional Source Comments The information contained in this document represents components of the legal health record. It is not the complete legal health record.[facility]
--- OUTSIDE RECORDS SUMMARY | 2025-09-01 10:17 | XMS_ITS | Encounter Summary ---
Author Organization [facility] Address [address] [facility] [address] [place] [address] Phone Care Team Providers Care A/C Technician Name Role Phone Selam Knowles CNP Primary Care Provider Jamaal Lamb MD Unavailable Dom Marroquin MD Unavailable Shannon Andrade NP Unavailable [phone] Breezy Trinh MD Unavailable Yisel Talbot MD Unavailable Breezy Smith MD Unavailable [phone] Jeanne Beltrán Unavailable Leonard Dumont MD Unavailable Sai Hollins MD Unavailable [phone] Selam Knowles CNP Unavailable Yoly Cline RN Unavailable [email or web address] Encounter Details Date Type Department Care Team (Late st Contact Info) Description 06/24/2022 Procedure Pass Non-Invasive Cardiology [address] [place] [address] Social History Tobacco Use Types Packs/Day Years Used Date Smoking Tobacco: Never Smokeless Tobacco: Never Alcohol Use Standard Drinks/Week Comments Not Currently 0 (1 standard drink = 0.6 oz pur e alcohol) (2022) Comments No Sex and Gender Information Value [...] Description 02/13/2026 10:00 AM EDT Office Visit [facility] [place] [facility] [address] [place] [address] Selam Knowles CNP [address] [place] [address], [address] [place] [address] [email or web address] 07/03/2026 9:10 AM EDT Office Visit [facility] [address] [place] [address] Dom Benjamin DO 22 [place] [address] documented as of this encounter Visit Diagnoses Not on filedocumented in this encounter Additional Health Concerns Assessment Noted Time PHQ-2 Depression Total Score: 0 08/03/20 22 9:47 AM EDT documented as of this encounter Care Teams A/C Technician Relationship Specialty Start Date End Date Selam Knowles CNP [address] [place] [address], [address] [place] [address] PCP - General 09/30/17 Jamaal Lamb MD [address] [place] [address], [address] [address] Insurance Assigned Provider 02/21/24 02/20/25 Dom Marroquin MD [address] [place] [address] Ophthalmology 03/30/19 08/05/22 Shannon Andrade NP [address] [place] [address] [email or web address] Obstetrics and Gynecology 03/30/19 4 Breezy Trinh MD [address] [place] [address] [email or web address] Gastroenterology 03/30/19 Yisel Talbot MD [address] [place] [address] Dermatology 06/06/20 Breezy Smith MD [address] [place] [address], [address] [place] [address] [email or web address] Ophthalmology 08/06/22 Jeanne [place]án [place] [address] [place] [address] [email or web address] Physician Daycare Manager 03/04/23 Leonard Dumont MD [address] [place] [address] [email or web address] Gastroenterology 08/09/24 Sai Hollins MD [address] [place] [address] Cardiology 08/09/24 Selam Knowles CNP [address] [facility] [place] [address] [email or web address] Insurance Assigned Provider 02/20/25 Yoly Cline, RN [address] [facility] [place] [address] [email or web address] Case Repairer 03/15/25 04/05/25 documented as of this encounter Additional Source Comments The information contained in this document represents components of the legal health record. It is not the complete legal health record.[facility]
--- OUTSIDE RECORDS SUMMARY | 2025-09-01 10:17 | XMS_ITS | Encounter Summary ---
Author Organization [facility] Address [address] [facility] [address] [place] [address] Phone Care Team Providers Care Adult Crossing Guard Name Role Phone Selam Knowles CNP Primary Care Provider Jamaal Lamb MD Unavailable Dom Marroquin MD Unavailable Shannon Andrade NP Unavailable [phone] Breezy Trinh MD Unavailable Yisel Talbot MD Unavailable Breezy Smith MD Unavailable [phone] Jeanne Beltrán Unavailable Leonard Dumont MD Unavailable [phone] Sai Hollins MD Unavailable [phone] Selam Knowles CNP Unavailable Yoly Cline RN Unavailable [email or web address] Encounter Details Date Type Department Care Team (Late st Contact Info) Description 02/06/2022 Procedure Pass Non-Invasive Cardiology [address] [place] [address] Social History Tobacco Use Types Packs/Day [...] 02/13/2026 10:00 AM EDT Office Visit [facility] [place] [facility] [address] [place] [address] Selam Knowles CNP [address] [place] [address], [address] [place] [address] 07/03/2026 9:10 AM EDT Office Visit [facility] [address] [place] [address] Dom Benjamin DO 22 [place] [address] documented as of this encounter Visit Diagnoses Not on filedocumented in this encounter Additional Health Concerns Assessment Noted Time PHQ-2 Depression Total Score: 0 08/03/20 22 9:47 AM EDT documented as of this encounter Care Teams Adult Crossing Guard Relationship Specialty Start Date End Date Selam Knowles CNP [address] [place] [address], [address] [place] [address] PCP - General 09/30/17 Jamaal Lamb MD [address] [place] [address], [address] [address] Insurance Assigned Provider 02/21/24 02/20/25 Dom Marroquin MD [address] [place] [address] Ophthalmology 03/30/19 08/05/22 Shannon Andrade NP [address] [place] [address] [email or web address] Obstetrics and Gynecology 03/30/19 4 Breezy Trinh MD [address] [place] [address] [email or web address] Gastroenterology 03/30/19 Yisel Talbot MD [address] [place] [address] Dermatology 06/06/20 Breezy Smith MD [address] [place] [address], [address] [place] [address] [email or web address] Ophthalmology 08/06/22 Jeanne [place]án [place] [address] [place] [address] [email or web address] Physician Court Advocate 03/04/23 Leonard Dumont MD [address] [place] [address] [email or web address] Gastroenterology 08/09/24 Sai Hollins MD [address] [place] [address] Cardiology 08/09/24 Selam Knowles CNP [address] [facility] [place] [address] [email or web address] Insurance Assigned Provider 02/20/25 Yoly Cline, RN [address] [facility] [place] [address] [email or web address] Video Games Mechanic 03/15/25 04/05/25 documented as of this encounter Additional Source Comments The information contained in this document represents components of the legal health record. It is not the complete legal health record.[facility]
--- OUTSIDE RECORDS SUMMARY | 2025-09-01 10:17 | XMS_ITS | Clinical Summary ---
Author Organization [facility] Address [address] [place] [address] Care Team Providers Care Regulatory Submissions Associate Name Role Phone Eleni Gracielamercy Primary Care Provider [phone] Allergies Active Allergy Reactions Criticality Noted Date Comments Atorvastatin Fatigue Low 04/05/2022 Body aches Caffeine Headache 06/24/2017 Ezetimibe Hives 07/25/2022 Gabapentin Rash 03/15/2024 Gluten Flatulence,Hives,Itching,Rash 2017 Rosuvastatin Muscle Pain 03/15/2024 Wheat Indigestion 05/31/2020 Yellow Dye Dyspnea High 03/15/2024 Medications ascorbic acid, vitamin C, (VITAMIN C) 250 mg tablet Take 500 mg by mouth daily. Active atenoloL (TENORMIN) 25 mg tablet Take 25 mg by mouth once a day. 05/11/2022 Active chlorthalidone (HYGROTEN) 25 mg tablet Take 1 tablet by mouth once a day. 02/12/2023 Active cholecalciferol (VITAMIN D3) 1,000 unit tablet Take 1,000 Units by mouth daily. Active levothyroxine (SYNTHROID, LEVOTHROID) 112 mcg tablet SMARTSI Tablet(s) By Mouth Daily 02/07/2023 Active magnesium oxide,aspartate, citr 400 mg magnesium capsule 800 mg 2 times daily. 08/16/2022 Active Mounjaro 5 mg/0.5 mL pen injector Inject 5 mg under the skin per week. 05/16/2025 Active Active Problems Problem Noted Date Diagnosed Date Statin intolerance 03/15/2024 LBBB (left bundle branch block) 09/09/2023 Mixed hyperlipidemia 09/09/2023 Palpitations 09/09/2023 Encounters Date Type Department Care Team Description 06/13/2025 4:00 PM EDT Follow-Up [address] floor Cardiology Medicine [address] [place] [address] Refresh Technician: Sai Buck MD LBBB (left bundle branch block) (Primary Dx); Primary hypertension 06/07/2025 Results Follow-Up [address] Cardiology Medicine [address] [place] [address] Refresh Technician: Sai Buck MD 06/06/2025 11:37 AM EDT - 06/06/2025 11:59 PM EDT Hospital Encounter [facility] Cardiac Ultrasound [address] [place] [address] Sai Hollins MD Discharge Disposition: Home or Self Care (01) from Last 3 Months Social History Tobacco Use Types Packs/Day Years Used Date Smoking Tobacco: Never Smokeless Tobacco: Never Tobacco Cessation:Counseling Given: Not Answered Alcohol Use Standard Drinks/Week Comments Not Currently 0 (1 standard drink = 0.6 oz pur e alcohol) Comments Unknown Sex and Gender Information Value Date Recorded Sex Assigned at Female 03/07/2023 10:33 AM EDT Legal Sex Female 11:45 AM EST Gender Identity Female 03/07/2023 10:33 AM EDT Sexual Orientation Straight 03/07/2023 10 :33 AM EDT Last Filed Vital Signs Vital Sign Reading Time Taken Comments Blood Pressure 132/80 06/13/2025 3:51 PM EDT Pulse 68 06/13/2025 3:51 PM EDT Temperature - - Respiratory Rate 12 06/13/2025 3:51 PM EDT Oxygen Saturation 95% 06/13/2025 3:51 PM EDT Inhaled Oxygen Concentration - - Weight 83.6 kg (184 lb 4.9 oz) 06/13/2025 3:51 P M EDT Height 174 cm (5' 8.5 ) 09/09/2023 3:15 PM EDT Body Mass Index 27.62 09/09/2023 3:15 PM EDT Plan of Treatment Upcoming Encounters Date Type Department Care Team (Late st Contact Info) Description 09/09/2025 10:30 AM EDT Appointment [facility] Heart Station [address] [place] [address] Sai Hlolins MD [address] [place] [address] 08/22/2026 11:20 AM EDT Follow-Up [facility] 4th floor Cardiology Medicine [address] [place] [address] Refresh Technician: Sai Buck MD [address] [place] [address] Health Maintenance Due Date Last Done Comments Cologuard 1952 Colon Cancer Screening 1950 Colonoscopy 1952 FOBT / Fit Test 1952 Hepatitis C Screening 1950 Sigmoidoscopy 1950 Medicare AWV 02/22/1953 Mammogram 1992 Osteoporosis Screening 02/22/2002 Alcohol/Substance Use Screening 11/17/2024 Depression Screening and Follow-Up 11/17/2024 Health Care Proxy Review 11/17/2024 Social Drivers of Health Annual Screening 11/17/2024 COVID-19 Vaccine ( season) 2025 08/02/2024, 11/05/2023, 06/03/2023, Additional history exists Influenza Vaccine (#1) 2025 , 08/05/2023, 08/09/2022, Additional history exists Basic Metabolic Panel 03/22/2026 03/22/2025, 08/29/2 023 DTaP,Tdap,and Td Vaccines (3 - Td or Tdap) 08/05/2033 08/05/2023, 04/19/2013 Pneumococcal Vaccine: 50+ Years Completed 11/13/2018, 06/24/2017 Zoster Vaccines Completed 03/23/2021, 03/2021, 04/19/2013 RSV Vaccine (60+ years old and patients) Completed 11/18/2024 Hepatitis B Vaccines Aged Out No long er eligible based on patient's age to complete this topic Medical Devices Implanted Type Area Dryer Operator Device Identifier Shelf Expiration Date Model / Serial / Lot Implantable Loop Recorder- [id number] Implanted:01/12 (Quantity not on file) Implantable Loop Recorder Chest [employer] [id number] / [id number] S / Procedures * Due to [place] [employer] law, this organization might not be sharing negative HIV tests. Procedure Name Priority Date/Time Associated Diagnosis Comments ECG 12-LEAD Routine 06/13/2025 3:49 PM EDT LBBB (left bundle branch block) TRANSTHORACIC ECHO (TTE) COMPLETE Routine 06/06/2025 12:03 PM EDT LBBB (left bundle branch block) from Last 3 Months Results * Due to [employer] law, this organization might not be sharing negative HIV tests. * ECG 12 lead (06/13/2025 3:49 PM EDT) Pathologist [facility] Ventricular Rate EKG 68 BPM MUSE EKG Atrial Rate 68 BPM MUSE EKG OR Interval 182 ms MUSE EKG QRS Interval 148 ms MUSE EKG QT Interval 426 ms MUSE EKG QTC Interval 452 ms MUSE EKG P [place] 54 degrees MUSE EKG R [place] -48 degrees MUSE EKG T Wave [place] 114 degrees MUSE EKG 06/13/2025 3:49 PM EDT 06/13/2025 4:21 PM EDT Impressions MUSE EKG - 06/13/2025 4:21 PM EDT SINUS RHYTHM WITH OCCASIONAL PREMATURE VENTRICULAR COMPLEXES LEFT AXIS DEVIATION LEFT BUNDLE BRANCH BLOCK ABNORMAL ECG WHEN COMPARED WITH ECG OF 12-May-2024 13:43, PREMATURE VENTRICULAR COMPLEXES ARE NOW PRESENT Confirmed by Sai Hollins ([id number]) on 06/13/2025 4:21:54 PM Narrative Procedure Note Sai Hollins MD - 06/13/2025 IMPRESSION: SINUS RHYTHM WITH OCCASIONAL PREMATURE VENTRICULAR COMPLEXES LEFT AXIS DEVIATION LEFT BUNDLE BRANCH BLOCK ABNORMAL ECG WHEN COMPARED WITH ECG OF 12-May-2024 13:43, PREMATURE VENTRICULAR COMPLEXES ARE NOW PRESENT Confirmed by Sai Hollins ([id number]) on 06/13/2025 4:21:54 PM us Sai Hollins MD ECG ORDERABLES Final Re sult MUSE EKG * TRANSTHORACIC ECHO (TTE) COMPLETE (06/06/2025 12:03 PM EDT) LVIDD 4.4 cm LVIDS 2.9 cm IVS 1.1 cm LVOT diameter 2.3 cm LVOT area 4.15 cm2 Relative Wall Thickness 0.50 PW 1.1 cm LV Mass Index 84 g/m2 MV Peak E Federico 0.44 m/s MV avg E/e' 9.06 MV Peak A Federico 0.75 m/s TR pk federico 1.9 m/s E/A ratio 0.60 Lateral e' 0.05 m/s E wave deceleration time 274.8 msec Septal e' 0.05 m/s MV E/E' Tissue Velocity Lateral 9.06 LA Volume Index 30 mL/m2 MV E/e' septal 9.06 LA volume 54 mL LVOT peak federico 0.89 m/s LVOT stroke volume 78 cm3 LV stroke vol index 39.3 mL/m2 LA size 3.8 cm AV mean gradient 4 mmHg AV peak gradient 6 mmHg Ao peak federico 1.3 m/s Ao VTI 25.86 cm LVOT peak VTI 19.17 cm AV VALVE AREA INDEX 1.50 cm2/m2 AV valve area 3.00 cm2 AV area pk federico 2.9 cm2 AV Doppler federico index pk federico 0.71 AV Velocity Ratio 0.74 TR PEAK GRAD 15.0 mmHg Ascending aorta 3.3 cm LV ED Post Wall 1.10 LV ES Dimension 2.90 LV ED Dimension 4.40 Aortic Valve Diam 2.3 cm Sinus 3.2 cm RIGHT ATRIAL PRESSURE 3 mmHg Estimated r vent sys pressure by tricuspid regurg jet 18 mmHg TV est pulmonary artery pressure 18 mmHg Anatomical Region Laterality Modality Heart Echocardiography Narrative 06/06/2025 2:13 PM EDT Low normal left ventricular systolic function with abnormal septal motion likely related to LBBB. Estimated LVEF 53%. Normal RV size with grossly normal RV systolic function. Mild aortic valve calcification. Left Ventricle The left ventricle size is normal. Mild interventricular septal thickening. There is increased relative wall thickness and normal left ventricular mass index, consistent with concentric remodeling. Normal left ventricular wall motion. Low normal left ventricular systolic function. Right Ventricle Right ventricle size is normal. Normal right ventricular systolic function. Left Atrium Left atrium size is normal. Right Atrium Right atrium is normal in size. IVC/SVC IVC diameter is less than or equal to 21 mm and decreases greater than 50% during inspiration; therefore the estimated right atrial pressure is normal (~3 mmHg). Mitral Valve Normal mitral valve without significant regurgitation or stenosis. Tricuspid Valve Tricuspid valve structure is normal. Mild tricuspid regurgitation. No tricuspid stenosis. Aortic Valve Mild aortic valve calcification. No aortic regurgitation. No aortic stenosis. Pulmonic Valve Pulmonic valve structure is normal. Mild pulmonic regurgitation. No pulmonic stenosis. Ascending Aorta The sinuses of Valsalva and ascending aorta are normal. Pericardium No pericardial effusion. Pulmonary Artery Pulmonary artery systolic pressure is normal. Estimated pulmonary artery pressure is 18 mmHg. Atrial Septum No interatrial shunt detected by color flow Doppler. Ventricular Septum Abnormal septal motion consistent with left bundle branch block. Study Details A complete echo was performed using 2D imaging, color flow Doppler and complete spectral Doppler. The echocardiogram included 3D rendering and interpretation not requiring a separate workstation. During the study the apical, parasternal, subcostal and suprasternal view was captured. Overall the study quality was adequate. Prior Study When compared to the prior TTE performed on 09/09/2023, findings are similar. . Sai Hollins MD CV ECHO PROCEDURES Final Result from Last 3 Months Insurance MEDICARE [facility] Care Teams Regulatory Submissions Associate Relationship Specialty Start Date End Date Selam Knowles [facility] [address], [address] [place] [address] PCP - General 03/10/23
--- OUTSIDE RECORDS SUMMARY | 2025-09-01 10:17 | XMS_ITS | Encounter Summary ---
Author Organization [facility] Address [address] [facility] [address] [place] [address] Phone Care Team Providers Care Ground Crewman Aircraft Support Name Role Phone Selam Knowles CNP Primary Care Provider [phone] Jamaal Lamb MD Unavailable Shannon Andrade NP Unavailable [phone] Breezy Trinh MD Unavailable Yisel Talbot MD Unavailable [phone] Breezy Smith MD Unavailable [phone] Jeanne Beltrán Unavailable Leonard Dumont MD Unavailable Sai Hollins MD Unavailable [phone] Selam Knowles CNP Unavailable [phone] Yoly Cline RN Unavailable [email or web address] Encounter Details Date Type Department Care Team (Late st Contact Info) Description 09/23/2023 Procedure Pass [facility] Endoscopy Admitting Dept Virtual Department [address] [place] [address] Social History Tobacco Use Types [...] with a working camera? Not on file Comments No Sex and Gender Information Value Date Recorded Sex Assigned at Female 05/02/2020 12:58 PM EDT Legal Sex Female 10:00 PM EDT Gender Identity Female 05/02/2020 12:58 PM EDT Sexual Orientation Not on file Occupation Industry Job Start Date Job End Date Retired from [employer] Not on file Not on file Not on file documented as of this encounter Plan of Treatment Upcoming Encounters Date Type Department Care Team (Late st Contact Info) Description 02/13/2026 10:00 AM EDT Office Visit [facility] Medicine [address] [place] [address] [place] [address] Selam Knowles CNP [address] [place] [address], [address] [place] [address] 07/03/2026 9:10 AM EDT Office Visit [facility] [address] [place] [address] [place] [address] Dom Benjamin DO [address] [place] [address] documented as of this encounter Visit Diagnoses Not on filedocumented in this encounter Additional Health Concerns Assessment Noted Time PHQ-2 Depression Total Score: 0 08/01/20 23 7:40 PM EDT documented as of this encounter Care Teams Ground Crewman Aircraft Support Relationship Specialty Start Date End Date Selam Knowles CNP [address] [place] [address], [address] [place] [address] PCP - General 09/30/17 Jamaal Lamb MD [address] [place] [address] [address] [place] [address] [email or web address] Insurance Assigned Provider 02/21/24 02/20/25 Shannon Andrade NP [address] [place] [address] [email or web address] Obstetrics and Gynecology 03/30/19 Breezy Barry MD [address] [address] [email or web address] Gastroenterology 03/30/19 Yisel Talbot MD [address] [place] [address] Dermatology 06/06/20 Breezy [place] MD [address] [place] [address], [address] [place] [address] [email or web address] Ophthalmology 08/06/22 Jeanne Beltrán PA [address] [address] [email or web address] Physician Inspector Metal Can 03/04/23 Leonard Dumont MD [address] [address] [email or web address] Gastroenterology 08/09/24 Sai Hollins MD [address] [place] [address] Cardiology 08/09/24 Selam Knowles, DENITRATOR OPERATOR [address] [place] [address], [address] [place] [address] [email or web address] Insurance Assigned Provider 02/20/25 Yoly Cline RN [address] [facility], [address] [place] [address] [email or web address] Utility Sales And Service Manager 03/15/25 04/05/25 documented as of this encounter Additional Source Comments The information contained in this document represents components of the legal health record. It is not the complete legal health record.[facility]
--- OUTSIDE RECORDS SUMMARY | 2025-09-01 10:17 | XMS_ITS | Encounter Summary ---
Author Organization [facility] Address [address] [facility] [address] [place] [address] Phone Care Team Providers Care Courtesy Bus Driver Name Role Phone Selam Knowles CNP Primary Care Provider [phone] Breezy Trinh MD Unavailable Yisel Talbot MD Unavailable [phone] Breezy Smith MD Unavailable [phone] Jeanne Beltrán Unavailable [phone] Leonard Dumont MD Unavailable Sai Hollins MD Unavailable [phone] Selam Knowles CNP Unavailable [phone] Reason for Visit * Reason Comments Medication Refill Encounter Details Date Type Department Care Team (Late st Contact Info) Description 06/14/2025 Refill [facility] [place] [facility] [address] [place] [address] [place] [address] Terence Amin CNP [address] [facility], [address] [place], [place] [id number] Medication Refill Social History Tobacco Use Types [...] Start Date Job End Date Retired from [employer] Not on file Not on file Not on file documented as of this encounter Plan of Treatment Upcoming Encounters Date Type Department Care Team (Late st Contact Info) Description 02/13/2026 10:00 AM EDT Office Visit [facility] [place] [facility] [address] [place] [address] [place] [address] Selam Knowles, FELIX [address] [facility] [place] [address] 07/03/2026 9:10 AM EDT Office Visit [facility] [address] [place] [address] Dom Benjamin DO [address] [place] [address] documented as of this encounter Visit Diagnoses Diagnosis Acquired hypothyroidism Unspecified hypothyroidism documented in this encounter Additional Health Concerns Assessment Noted Time PHQ-2 Depression Total Score: 0 08/02/20 24 4:57 PM EDT documented as of this encounter Care Teams Courtesy Bus Driver Relationship Specialty Start Date End Date Selam Knowles CNP [address] [facility] [place] [address] [email or web address] PCP - General 09/30/17 Breezy Trinh MD [address] [address] [email or web address] Gastroenterology 03/30/19 Yisel Talbot MD [address] [address] Dermatology 06/06/20 Breezy Smith MD [address] [place] [address], [address] [place] [address] [email or web address] Ophthalmology 08/06/22 Jeanne Beltrán PA [address] [address] [email or web address] Physician Boat Finisher 03/04/23 Leonard Dumont MD [address] [address] [email or web address] Gastroenterology 08/09/24 Sai Hollins MD [address] [place] [address] Cardiology 08/09/24 Selam Knowles CNP [address] [facility], [address] [place] [address] [email or web address] Insurance Assigned Provider 02/20/25 documented as of this encounter Additional Source Comments The information contained in this document represents components of the legal health record. It is not the complete legal health record.[facility]
--- OUTSIDE RECORDS SUMMARY | 2025-09-01 10:17 | XMS_ITS | Encounter Summary ---
Author Organization [facility] Address [address] [place] [address] Care Team Providers Care Mergers And Acquisitions Banker Name Role Phone Selam Knowles Primary Care Provider [phone] Encounter Details Date Type Department Care Team (Late st Contact Info) Description 07/05/2024 Telephone [facility] Heart Station [address] [place] [address] Sai Hollins MD [address] [place] [address] Social History Tobacco Use Types Packs/Day Years [...] Orientation Straight 03/07/2023 10 :33 AM EDT documented as of this encounter Miscellaneous Notes * Telephone Encounter - Shawna Valle Sunshine - 07/05/2024 10:08 AM EDT Alert received today from [employer] - pt's loop recorder reached PORTFOLIO ARCHITECT status on 8/17/24. To proceed with explanting this device, please submit an explant order so it can be scheduled. documented in this encounter Plan of Treatment Upcoming Encounters Date Type Department Care Team (Late st Contact Info) Description 09/09/2025 10:30 AM EDT Appointment [facility] Heart Station [address] [place] [address] Sai Hollins MD [address] [place] [address] 08/22/2026 11:20 AM EDT Follow-Up [facility] 4th floor Cardiology Medicine [address] [place] [address] Concrete Finisher: Sai Buck MD [address] [place] [address] documented as of this encounter Visit Diagnoses Not on filedocumented in this encounter Care Teams Mergers And Acquisitions Banker Relationship Specialty Start Date End Date Selam Knowles [facility] [address] [place] [address] PCP - General 03/10/23 documented as of this encounter
--- OUTSIDE RECORDS SUMMARY | 2025-09-01 10:17 | XMS_ITS | Encounter Summary ---
Author Organization [facility] Address [address] [employer] [facility] [address] [place] [address] Phone Care Team Providers Care Reimbursement Consultant Name Role Phone Selam Knowles CNP Primary Care Provider Jamaal Lamb MD Unavailable Shannon Andrade NP Unavailable [phone] Breezy Trinh MD Unavailable Yisel Talbot MD Unavailable Breezy Smith MD Unavailable [phone] Jeanne Beltrán Unavailable Leonard Dumont MD Unavailable Sai Hollins MD Unavailable [phone] Selam Knowles CNP Unavailable [phone] Yoly Cline RN Unavailable [email or web address] Encounter Details Date Type Department Care Team (Late st Contact Info) Description 09/15/2023 Procedure Pass [facility], [address] [id number] Social History Tobacco Use Types Packs/Day Years [...] Start Date Job End Date Retired from [employer] Not on file Not on file Not on file documented as of this encounter Plan of Treatment Upcoming Encounters Date Type Department Care Team (Late st Contact Info) Description 02/13/2026 10:00 AM EDT Office Visit [facility] Medicine [address] [place] [address] [place] [address] Selam Knowles CNP [address] [place] [address], [address] [place] [address] [email or web address] 07/03/2026 9:10 AM EDT Office Visit [facility] [address] [place] [address] [place] [address] Dom Benjamin DO [address] [place] [address] documented as of this encounter Visit Diagnoses Not on filedocumented in this encounter Additional Health Concerns Assessment Noted Time PHQ-2 Depression Total Score: 0 08/01/20 23 7:40 PM EDT documented as of this encounter Care Teams Reimbursement Consultant Relationship Specialty Start Date End Date Selam Knowles CNP [address] [place] [address], [address] [place] [address] PCP - General 09/30/17 Jamaal Lamb MD [address] [place] [address], [address] [place] [address] [email or web address] Insurance Assigned Provider 02/21/24 02/20/25 Shannon Andrade NP [address] [place] [address] [email or web address] Obstetrics and Gynecology 03/30/19 Breezy Barry MD [address] [address] [email or web address] Gastroenterology 03/30/19 Yisel Talbot MD [address] [place] [address] Dermatology 06/06/20 Breezy Smith MD [address] [place] [address], [address] [place] [address] [email or web address] Ophthalmology 08/06/22 Jeanne Beltrán PA [address] [address] [email or web address] Physician Title Search Manager 03/04/23 Leonard Dumont MD [address] [address] [email or web address] Gastroenterology 08/09/24 Sai Hollins MD [address] [place] [address] Cardiology 08/09/24 Selam Knowles, FELIX [address] [place] [address] [address] [place] [address] [email or web address] Insurance Assigned Provider 02/20/25 Yoly Cline RN [address] [facility], [address] [place] [address] [email or web address] International Accountant 03/15/25 04/05/25 documented as of this encounter Additional Source Comments The information contained in this document represents components of the legal health record. It is not the complete legal health record.[facility]
--- OUTSIDE RECORDS SUMMARY | 2025-09-01 10:17 | XMS_ITS | Encounter Summary ---
Author Organization [facility] Address [address] [facility] [address] [place] [address] Phone Care Team Providers Care Research Physiologist Name Role Phone Selam Knowles CNP Primary Care Provider Jamaal Lamb MD Unavailable Shannon Andrade NP Unavailable [phone] Breezy Trinh MD Unavailable Yisel Talbot MD Unavailable [phone] Breezy Smith MD Unavailable [phone] Jeanne Betlrán Unavailable [phone] Leonard Dumont MD Unavailable Sai Hollins MD Unavailable [phone] Selam Knowles CNP Unavailable Yoly Cline RN Unavailable [email or web address] Reason for Referral * MRI/CAT Scan - Closed Specialty Diagnoses / Procedures Referred By Contac t Referred To Contact Radiology Diagnoses Radiculopathy, lumbar region Procedures MRI Lumbar Spine Peggy Cantor PA Phone: tel: fax: [email or web address] Referral ID Status Reason Start Date Expiration Date Visits Re quested Visits Authorized [id number] Closed 09/15/2023 1 1 Encounter Details Date Type Department Care Team (Latest Contact Info) Description 09/15/2023 Transcribe Orders Virtual Department [address] [place] [address] Peggy Cantor PA [address] [place] [address] [email or web address] Radiculopathy, lumbar region (Primary Dx) Social History Tobacco Use Types Packs/Day Years Used Date Smoking Tobacco: Never Smokeless Tobacco: Never Alcohol Use Standard Drinks/Week Comments Not Currently 0 (1 standard drink = 0.6 oz pur e alcohol) (2022) Education Answer Date Recorded Are you interested [...] Start Date Job End Date Retired from [employer] Not on file Not on file Not on file documented as of this encounter Plan of Treatment Upcoming Encounters Date Type Department Care Team (Late st Contact Info) Description 02/13/2026 10:00 AM EDT Office Visit [facility] [address] [place] [address] Selam Knowles, PURCHASING INTERNSHIP [address] [facility], [address] [place] [address] 07/03/2026 9:10 AM EDT Office Visit [facility] [address] [place] [address] oDm Benjamin DO [address] [place] [address] [email or web address] documented as of this encounter Results * MRI LUMBAR SPINE (NEURO) WITHOUT CONTRAST (10/03/2023 7:30 AM EST) Anatomical Region Laterality Modality L-spine Magnetic Resonan ce 10/07/2023 11:0 3 AM EST Impressions 10/07/2023 2:37 PM EST Lumbar spine degenerative changes as described, most notable for severe spinal canal stenosis at L4-L5, as well as foraminal stenosis which is severe on the right at L1-L2 and moderate on the right at L2-L3. Narrative 10/07/2023 2:37 PM EST MRI LUMBAR SPINE (NEURO) WITHOUT CONTRAST Referring clinician's provided indication for this examination in Epic: Outside Radiology Order; RADICULOPATHY LUMBAR REGION TECHNIQUE: MRI LUMBAR SPINE (NEURO) WITHOUT CONTRAST Multi-sequence, multi-planar MRI of the lumbar spine was performed without intravenous contrast. COMPARISON: None FINDINGS: LUMBAR SPINE: Alignment and Vertebrae: Normal alignment. No compression fracture. Marrow: Heterogeneous background marrow without suspicious focal lesion. Discs and Endplates: Multilevel disc space narrowing, moderate at L1-L2 and L2- L3, and severe at L5-S1. Mild vertebral endplate edema length in the posterior aspect of the L3-L4 interspace. Conus: Normal. Soft Tissues: Normal. No prevertebral edema. Other Findings: None. Findings by level: T12-L1: Normal. No spinal or foraminal stenosis. L1-L2: Posterior disc osteophyte complex. Right facet arthropathy. Ligamentum flavum hypertrophy. Severe right and mild left foraminal stenosis. Severe narrowing of the right subarticular zone. Mild central spinal canal stenosis. L2-L3: Diffuse disc bulge, eccentric to the right. Mild facet arthropathy. Ligamentum flavum hypertrophy. Moderate right and mild left foraminal stenosis. Severe narrowing of the right subarticular zone. Mild central spinal canal stenosis. L3-L4: Diffuse disc bulge. Bilateral facet arthropathy. Ligamentum flavum hypertrophy. Mild right foraminal stenosis. Mild spinal canal stenosis. L4-L5: Diffuse disc bulge with superimposed central disc protrusion. Severe bilateral facet arthropathy. Severe spinal canal stenosis. Mild left foraminal stenosis. L5-S1: Mild facet arthropathy. Mild left foraminal stenosis. No significant spinal canal stenosis. Procedure Note José Nagel MD - 10/07/2023 MRI LUMBAR SPINE (NEURO) WITHOUT CONTRAST Referring clinician's provided indication for this examination in Epic:Outside Radiology Order; RADICULOPATHY LUMBAR REGION TECHNIQUE: MRI LUMBAR SPINE (NEURO) WITHOUT CONTRAST Multi-sequence, multi-planar MRI of the lumbar spine was performed withoutintravenous contrast. COMPARISON: None FINDINGS: LUMBAR SPINE: Alignment and Vertebrae: Normal alignment. No compression fracture. Marrow: Heterogeneous background marrow without suspicious focal lesion. Discs and Endplates: Multilevel disc space narrowing, moderate at L1-L2and L2- L3, and severe at L5-S1. Mild vertebral endplate edema length inthe posterior aspect of the L3-L4 interspace. Conus: Normal. Soft Tissues: Normal. No prevertebral edema. Other Findings: None. Findings by level: T12-L1: Normal. No spinal or foraminal stenosis. L1-L2: Posterior disc osteophyte complex. Right facet arthropathy.Ligamentum flavum hypertrophy. Severe right and mild left foraminalstenosis. Severe narrowing of the right subarticular zone. Mild centralspinal canal stenosis. L2-L3: Diffuse disc bulge, eccentric to the right. Mild facet arthropathy.Ligamentum flavum hypertrophy. Moderate right and mild left foraminalstenosis. Severe narrowing of the right subarticular zone. Mild centralspinal canal stenosis. L3-L4: Diffuse disc bulge. Bilateral facet arthropathy. Ligamentum flavumhypertrophy. Mild right foraminal stenosis. Mild spinal canal stenosis. L4-L5: Diffuse disc bulge with superimposed central disc protrusion.Severe bilateral facet arthropathy. Severe spinal canal stenosis. Mildleft foraminal stenosis. L5-S1: Mild facet arthropathy. Mild left foraminal stenosis. Nosignificant spinal canal stenosis. IMPRESSION: Lumbar spine degenerative changes as described, most notable for severespinal canal stenosis at L4-L5, as well as foraminal stenosis which issevere on the right at L1-L2 and moderate on the right at L2-L3. Peggy TRACEY IMG MR XSPECIALTY Final Resul t documented in this encounter Visit Diagnoses Diagnosis Radiculopathy, lumbar region- Primary Thoracic or lumbosacral neuritis or radiculitis, unspecified Radiculopathy, lumbar region Thoracic or lumbosacral neuritis or radiculitis, unspecified documented in this encounter Additional Health Concerns Assessment Noted Time PHQ-2 Depression Total Score: 0 08/01/20 23 7:40 PM EDT documented as of this encounter Care Teams Research Physiologist Relationship Specialty Start Date End Date Selam Knowles CNP [address] [place] [address], [address] [place] [address] [email or web address] PCP - General 09/30/17 Jamaal Lamb MD [address] [facility], [address] [place] [address] Insurance Assigned Provider 02/21/24 02/20/25 Shannon Andrade NP [address] [place] [address] Obstetrics and Gynecology 03/30/19 Breezy Barry MD [address] [place] [address] Gastroenterology 03/30/19 iYsel Talbot MD [address] [place] [address] Dermatology 06/06/20 Breezy Smith MD [address] [place] [address], [address] [place] [address] [email or web address] Ophthalmology 08/06/22 Jeanne Beltrán PA [address] [facility] [address] [place] [address] [email or web address] Physician Maintenance Craftsman 03/04/23 Leonard Dumont MD 10 [facility] 2 [place] [address] [email or web address] Gastroenterology 08/09/24 Sai Hollins MD [address] [place] [address] Cardiology 08/09/24 Selam Knowles CNP [address] [place] [address], [address] [place] [address] [email or web address] Insurance Assigned Provider 02/20/25 Yoly Cline, RN [address] [place] [address], [address] [place] [address] [email or web address] PHCM Process Equipment Operator 03/15/25 04/05/25 documented as of this encounter Additional Source Comments The information contained in this document represents components of the legal health record. It is not the complete legal health record.[facility]
--- OUTSIDE RECORDS SUMMARY | 2025-09-01 10:17 | XMS_ITS | Encounter Summary ---
Author Organization [facility] Address [address] [place] [address] Phone Care Team Providers Care Press Shop Supervisor Name Role Phone Selam Knowles CNP Primary Care Provider [phone] Jamaal Lamb MD Unavailable Dom Marroquin MD Unavailable Shannon Andrade QUALITY TECH Unavailable [phone] Breezy Trinh MD Unavailable Khai Hall MD Unavailable Yisel Talbot MD Unavailable Breezy Smith MD Unavailable [phone] Jeanne Beltrán Unavailable Leonard Dumont MD Unavailable Sai Hollins MD Unavailable [phone] Selam Knowles BOAT OUTFITTING SUPERVISOR Unavailable Yoly Cline RN Unavailable [email or web address] Encounter Details Date Type Department Care Team (Late st Contact Info) Description 03/13/2021 Ancillary [facility] [address] Floor, [address] [place], [place] [id number] Zach Bradley MD [address] [place] [address] [email or web address] Social History Tobacco Use Types Packs/Day Years [...] Start Date Job End Date Retired from [employer] Not on file Not on file Not on file documented as of this encounter Plan of Treatment Upcoming Encounters Date Type Department Care Team (Late st Contact Info) Description 02/13/2026 10:00 AM EDT Office Visit [facility] [address] [place] [address] [place] [address] Selam Knowles CNP [address] [place] [address], [address] [address] 07/03/2026 9:10 AM EDT Office Visit [facility] [address] [place] [address] [place] [address] Dom Benjamin DO [address] [place] [address] documented as of this encounter Visit Diagnoses Not on filedocumented in this encounter Additional Health Concerns Assessment Noted Time PHQ-2 Depression Total Score: 0 06/03/20 20 8:10 PM EDT documented as of this encounter Care Teams Press Shop Supervisor Relationship Specialty Start Date End Date Selam Knowles CNP [address] [place] [address], [address] [address] [email or web address] PCP - General 09/30/17 Jamaal Lamb MD [address] [place] [address], [address] [address] [email or web address] Insurance Assigned Provider 02/21/24 02/20/25 Dom Marroquin MD [address] [place] [address] Ophthalmology 03/30/19 08/05/22 Shannon Andrade NP [address] [place] [address] [email or web address] Obstetrics and Gynecology 03/30/19 Breezy Barry MD [address] [place] [address] [email or web address] Gastroenterology 03/30/19 Khai Hall MD [address] [place] [address] Sleep Medicine 03/30/19 06/11/21 Yisel Talbot MD [address] [place] [address] Dermatology 06/06/20 Breezy Smith MD [address] [place], [place] [address] [place] [address] [email or web address] Ophthalmology 08/06/22 Jeanne Beltrán PA [address] [place] [address] [email or web address] Physician Market News Reporter 03/04/23 Leonard Dumont MD [address] [place] [address] [email or web address] Gastroenterology 08/09/24 Sai Hollins MD [address] [place] [address] Cardiology 08/09/24 Selam Knowles CNP [address] [place] [address], [address] [place], [place] [id number] [email or web address] Insurance Assigned Provider 02/20/25 Yoly Cline RN [address] [place] [address], [address] [place] [address] [email or web address] [facility] Pattern Puncher 03/15/25 04/05/25 documented as of this encounter Additional Source Comments The information contained in this document represents components of the legal health record. It is not the complete legal health record.[facility]
--- OUTSIDE RECORDS SUMMARY | 2025-09-01 10:17 | XMS_ITS | Encounter Summary ---
Author Organization [facility] Address [address] [facility] [address] [place] [address] Phone Care Team Providers Care Media Professional Name Role Phone Selam Knowles CNP Primary Care Provider [phone] Jamaal Lamb MD Unavailable Shannon Andrade NP Unavailable [phone] Breezy Trinh MD Unavailable Yisel Talbot MD Unavailable Breezy Smith MD Unavailable [phone] Jeanne Beltrán Unavailable [phone] Leonard Dumont MD Unavailable [phone] Sai Hollins MD Unavailable [phone] Selam Knowles CNP Unavailable [phone] Yoly Cline RN Unavailable [email or web address] Encounter Details Date Type Department Care Team (Late st Contact Info) Description 01/13/2024 Procedure Pass [facility]oscopy Admitting Dept Virtual Department [address] [place] [address] Social History Tobacco Use Types [...] Start Date Job End Date Retired from [employer] Not on file Not on file Not on file documented as of this encounter Plan of Treatment Upcoming Encounters Date Type Department Care Team (Late st Contact Info) Description 02/13/2026 10:00 AM EDT Office Visit [facility] [address] [place] [address] [place] [address] Selam Knowles CNP [address] [place] [address], [address] [place] [address] 07/03/2026 9:10 AM EDT Office Visit [facility] [address] [place] [address] [place] [address] Dom Benjamin DO [address] [place] [address] documented as of this encounter Visit Diagnoses Not on filedocumented in this encounter Additional Health Concerns Assessment Noted Time PHQ-2 Depression Total Score: 0 08/01/20 23 7:40 PM EDT documented as of this encounter Care Teams Media Professional Relationship Specialty Start Date End Date Selam Knowles CNP [address] [place] [address], [address] [place] [address] PCP - General 09/30/17 Jamaal Lamb MD [address] [place] [address] [address] [place] [address] [email or web address] Insurance Assigned Provider 02/21/24 02/20/25 Shannon Andrade NP [address] [place] [address] [email or web address] Obstetrics and Gynecology 03/30/19 Breezy Barry MD [address] [address] [email or web address] Gastroenterology 03/30/19 Yisel Talbot MD [address] [place] [address] Dermatology 06/06/20 Breezy Smith MD [address] [place] [address], [address] [place] [address] [email or web address] Ophthalmology 08/06/22 Jeanne Beltrán PA [address] [address] [email or web address] Physician Director Of Cardiac Rehabilitation 03/04/23 Leonard Dumont MD [address] [address] [email or web address] Gastroenterology 08/09/24 Sai Hollins MD [address] [place] [address] Cardiology 08/09/24 Selam Knowles, SHIRT CLOSER [address] [place] [address], [address] [place] [address] [email or web address] Insurance Assigned Provider 02/20/25 Yoly Cline RN 22 [facility], [address] [place] [address] [email or web address] [email or web address] Tender 03/15/25 04/05/25 documented as of this encounter Additional Source Comments The information contained in this document represents components of the legal health record. It is not the complete legal health record.[facility]
== END 2025-09-01 09:08 | disposition home or self-care (01) ==
LOC: HO.MAMMO 09:07
PROVIDERS: PCP Nurse Practitioner Adult Health; Visit Provider Nurse Practitioner Adult Health
DX: Z12.31 Encounter for screening mammogram for malignant neoplasm of breast (principal)
CPT/HCPCS: 77063; 77067

== ENCOUNTER → 2025-09-01 09:30 | Outpatient (BNV) | payer MEDICARE, OTHER, SELFPAY | PROVIDERS: PCP Nurse Practitioner Adult Health; Visit Provider Radiology Body Imaging | DX: Z12.31 Encounter for screening mammogram for malignant neoplasm of breast (principal) | CPT/HCPCS: 77063; 77067 ==